=== PATIENT | female | born 2000 | race Caucasian/White ===

== ENCOUNTER 2021-11-14 12:32 | Outpatient (REF) | payer OTHER, SELFPAY ==
[2021-11-14 16:19] LABS: COVID-19 Test Negative (Negative)
== END 2021-11-14 12:33 | disposition home or self-care (01) ==
LOC: HO.LAB 12:32
PROVIDERS: Visit Provider Internal Medicine
DX: Z20.822 Contact with and (suspected) exposure to COVID-19 (principal)
CPT/HCPCS: 36415; 87635; C9803

== ENCOUNTER 2022-02-20 08:00 | Outpatient (RCR) | payer OTHER, SELFPAY ==
--- NOTE | 2022-01-13 12:50 | MHC.PT.EP ---
[facility] [place] Office [place] Office [place] Office [address] Ibis Harris [address] [phone] F: [phone] F: [phone] F: [phone] F: [phone] Physical Therapy Plan of Care Date of Evaluation: Date of Surgery: Diagnosis: SCOLIOSIS Assessment: QUANG IS A PLEASANT 21 YO FEMALE WHO PRESENTS WITH INCREASING PAIN OVER THE LAST FEW MONTHS. UPON EXAM SHE PRESENTS WITH MUSCULAR LENGTH AND STRENGTH IMBALANCES LEADING TO INCREASED SOFT TISSUE TENSION AND PAIN. UPON EXAM SHE DEMONSTRATES DECREASED LUMBAR ROM, DECREASED HIP ROM, DECREASED LE STRENGTH. FUNCTIONAL LIMITATIONS INCLUDE DECREASED ABILITY TO PERFORM HOMEMAKING TASKS, DECREASED ABILITY TO PUSH, PULL, LIFT AND SQUAT. SHE REPORTS DECREASED PARTICIPATION IN RECREATION AND FITNESS TASKS. A PT IS A GOOD CANDIDATE FOR SKILLED PT DUE TO AGE, POTENTIAL REMEDIATION OF IMPAIRMENTS, TYPICAL DISEASE/CONDITION PROGRESSION AND PROGNOSIS, COMORBIDITIES, AND MOTIVATION. PT WOULD BENEFIT FROM TAILORED PROGRAM OF THERAPEUTIC ACTIVITIES, FUNCTIONAL TRAINING, GAIT TRAINING, POSTURAL EDUCATION, NEUROMUSCULAR RE-EDUCATION, AND MODALITIES NEEDED. Frequency and Duration: The patient will be seen 2 X WEEK FOR 4 WEEKS Short Term Goals: INITIATE HEP AND PROMOTE SELF MANAGEMENT OF SYMPTOMS IN 3 VISITS Industrial Education Instructor Goals: To ambulate ad swathi without pain greater than 2/10 in 4 weeks To demonstrate 5/5 LE strength equal Nadeem IN 4 weeks To demonstrate full lumbar ROM without pain greater than 2/10 in 4 weeks Independent HEP in 4 weeks Treatment Plan: Modalities to reduce pain, spasms and effusion. Manual therapy to restore motion and function. Therapeutic exercise to improve strength and flexibility. Neuromuscular re-education for posture and balance. Therapeutic activities to return to functional activities of daily living. Electronically signed by: REMI CORREA PT, DPT Please sign and return to therapist. Thank you for your referral.
--- NOTE | 2022-04-03 09:13 | MHC.PT.DC ---
[facility] [place] Office [place] Office [place] Office [address] Ibis Harris [address] [phone] F: [phone] F: [phone] F: [phone] F: [phone] Physical Therapy Discharge Report Diagnosis: SCOLIOSIS Date of Surgery: Date of Evaluation: 01/06/22 Date of Discharge: 03/22/22 Treatments to Date: 5 Cancellations to Date: 3 No Shows to Date: 0 Discharge Status: Patient Elected to Stop Discharge Summary: QUANG WAS PROGRESSING WELL IN PT AT LAST ATTENDED VISIT, SHE PHONED OFFICE CANCELLING VISITS SHE WAS LEAVING FOR VACATION. SHE HAS RETURNED FOR FURTHER THERAPY AND IS DCed AT THIS TIME. Electronically signed by: REMI CORREA PT, DPT Please sign and return to therapist. Thank you for your referral.
== END 2022-04-03 09:14 | disposition home or self-care (01) ==
LOC: HO.PT 08:00
PROVIDERS: PCP Internal Medicine; Visit Provider Nurse Practitioner Family
DX: M54.9 Dorsalgia, unspecified (principal); M41.9 Scoliosis, unspecified
CPT/HCPCS: 97110; 97140; 97162

== ENCOUNTER 2022-03-27 08:27 | Outpatient (REF) | payer OTHER, SELFPAY ==
--- NOTE | ~2022-03-27 | US_ITS ---
EXAMINATION: US ABDOMEN COMPLETE CLINICAL INFORMATION: Right upper quadrant abdominal tenderness. COMPARISON: None TECHNIQUE: Real-time imaging of the abdominal viscera. FINDINGS: PANCREAS: Normal. ABDOMINAL AORTA: The proximal, mid, and distal segments are normal in caliber. INFERIOR VENA CAVA: Visualized portions are normal. LIVER: Normal. The liver is normal in size. The liver contour is normal. Parenchymal echogenicity is normal. No focal hepatic lesion. There is no intrahepatic biliary duct dilatation seen. GALLBLADDER: Normal. The gallbladder is physiologically distended without evidence of stones, sludge, polyps, wall thickening or pericholecystic fluid. COMMON BILE DUCT: Normal in caliber measuring 0.1 cm in diameter. RIGHT KIDNEY: Right renal pelviectasis. No niya hydronephrosis. No renal calculi or focal parenchymal lesions. The kidney measures 10.1 cm in maximum dimension. LEFT KIDNEY: Normal. No hydronephrosis. No renal calculi or focal parenchymal lesions. The kidney measures 10.7 cm in maximum dimension. SPLEEN: Normal. The spleen measures 10.5 cm in maximum dimension. FREE FLUID: None. US/US abdomen complete IMPRESSION: Right renal pelviectasis without niya hydronephrosis.
== END 2022-03-27 08:28 | disposition home or self-care (01) ==
LOC: HO.US 08:27
PROVIDERS: Visit Provider Nurse Practitioner Family
DX: R10.811 Right upper quadrant abdominal tenderness (principal)
CPT/HCPCS: 76700

== ENCOUNTER 2022-04-22 14:39 | Outpatient (REF) | payer OTHER, SELFPAY ==
[2022-04-22 17:23] LABS: MANUAL DIFF FLAG NO
[2022-04-22 17:47] LABS: Basophils Percent Auto 0.5 % (0-2); Eosinophils Absolute Auto 0.2 X10*3/uL (0.0-0.4); Hematocrit 41.1 % (37.0-47.0); Hemoglobin 13.9 g/dl (12.0-16.0); Imm Gran Abs Auto 0.01 X10*3/uL (0.00-0.03); Imm Gran Pct Auto 0.1 % (0.0-0.4); Lymphocytes Absolute Auto 3.9 X10*3/uL (1.2-4.9); Lymphocytes Percent Auto 49.8 % (20-40); Mean Corpuscular HGB Conc 33.8 g/dl (31.0-35.0); Mean Corpuscular Hemoglobin 27.6 pg (27.0-33.0); Mean Corpuscular Volume 81.5 fL (80.0-98.0); Mean Platelet Volume 9.2 fL (9.4-12.3); Monocytes Absolute Auto 0.4 X10*3/uL (0.1-1.2); Monocytes Percent Auto 5.2 % (2-11); Neutrophils Absolute Auto 3.3 x10*3/uL (2.0-8.3); Neutrophils Percent Auto 42.4 % (45-73); Platelet Count 216 X10*3/uL (160-400); Red Blood Count 5.04 X10*6/uL (4.20-5.50); Red Cell Distribution Width 12.8 % (11.0-16.0); White Blood Count 7.8 X10*3/uL (4.8-10.8)
[2022-04-22 18:03] LABS: Alanine Aminotransferase 13 U/L (0-31); Albumin Level 4.7 g/dL (3.5-5.0); Alkaline Phosphatase 47 U/L (39-117); Anion Gap 13 (12-20); Aspartate Amino Transferase 16 U/L (5-31); Bilirubin Total 0.2 mg/dL (0.0-1.0); Blood Urea Nitrogen 12 mg/dL (9-16); Calcium 9.1 mg/dL (8.4-10.2); Carbon Dioxide 25 mmol/L (22-29); Chloride 105 mmol/L (96-108); Estimated Glomerular Filt Rate > 60; Glucose Random 86 mg/dL (60-115); Potassium 3.6 mmol/L (3.3-5.1); Sodium 139 mmol/L (135-145); Total Protein 7.4 g/dL (6.5-8.0)
[2022-04-22 18:23] LABS: TSH reflex Free T4 1.54 uIU/mL (0.32-4.0); Vitamin D 25-OH Total 44.3 ng/mL (>30)
== END 2022-04-22 14:40 | disposition home or self-care (01) ==
LOC: HO.LAB 14:39
PROVIDERS: PCP Internal Medicine; Visit Provider Nurse Practitioner Family
DX: Z13.29 Encounter for screening for other suspected endocrine disorder (principal); R10.9 Unspecified abdominal pain
CPT/HCPCS: 36415; 80053; 82306; 84443; 85025

== ENCOUNTER 2023-12-11 07:53 | Outpatient (AMB) | payer OTHER, SELFPAY ==
[2023-12-11 07:56] VITALS: BP 108/70; BMI 21.6
--- NOTE | 2023-12-11 07:56 | A.OFFPC_ITS ---
Vital Signs 12/11/23 07:56 Height 5 ft 3 in Weight 122 lb BMI 21.6 BP 108/70 Blood Pressure Location Lt brachial Position Sitting Intake Visit Reasons: PE Intake Note: Patient here for a physical exam Direct Mail Coordinator Required: No Accompanied by: Self / Same As Patient Allergies Seasonal Allergies Allergy (Mild, Verified 12/11/23 08:08) itchy eyes, runny nose Medication List - Last Reconciled 12/11/23 by Sofie Braxton MD levonorgestrel-ethinyl estrad 0.1-20 mg-mcg (Sronyx) 1 tab PO DAILY sertraline 100 mg PO DAILY 90 days sertraline (Zoloft) 25 mg PO DAILY 90 days Tobacco use date assessed: 12/11/23 Dental Screening Dental Screen Date: 12/11/23 Did you have a dental visit in the last 12 months?: Yes Did you have a dental problem in the last 6 months where you did not have access to dental care?: No Was dental information given to patient?: Patient has dentist HPI HPI Comments History of Present Illness Details This is a 23-year-old female that comes for her physical exam. Last Pap smear as per patient was a year ago and was normal. No chest pain or shortness of breath. Complains of constipation with less than 3 bowel movements per week. Was advised to eat a high-fiber diet and try [id number] Metamucil tablets. [facility] Medical History Screening for hypothyroidism Urinary frequency Plantar warts Anxiety Surgical History History of removal of skin mole Family History Mother Thyroid cancer Father Diabetes Social History Housing: Apartment Alcohol intake: never Patient Tobacco Use Status: Never used Tobacco e-Cigarette/Vaping Use: Former Use Second Hand Smoke Exposure: No service: No Current occupational status: employed Current occupational exposures/hazards: No Cognitive needs: No Hearing needs: No Vision needs: Yes (glasses) Questionnaire PHQ-9 Over the last 2 weeks, how often have you been bothered by any of the following problems? 1. Little interest or pleasure in doing things: not at all 2. Feeling down, depressed, or hopeless: not at all 3. Trouble falling or staying asleep, or sleeping too much: not at all 4. Feeling tired or having little energy: not at all 5. Poor appetite or overeating: not at all 6. Feeling bad about yourself - or that you are a failure or have let yourself or your family down: not at all 7. Trouble concentrating on things, such as reading the newspaper or watching television: not at all 8. Moving or speaking so slowly that other people could have noticed. Or the opposite - being so fidgety or restless that you have been moving around a lot more than usual: not at all 9. Thoughts that you would be better off or of hurting yourself in some way: not at all Total score: 0 Depression Screening Interpretation: Negative Depression Screening Done: Yes 16788 - PHQ-9 Billing: Yes Source: Developed by Drs. Ivan Dutton, Jennifer Delvalle, Alexey Early and colleagues, with an educational mary from [employer]. Thrive Questionnaire Date Thrive assessed: 12/11/23 I am a: Patient What is your living situation today?: I have a steady place to live Within the past 12 months, did the food you bought not last and you didn't have the money to get more?: Never true Within the past 12 months, did you worry whether your food would run out before you got money to buy more?: Never true Do you have trouble paying for medicines?: No Do you have trouble getting transportation to medical appointments?: No Do you have trouble paying your heating and electricity bill?: No Do you have trouble taking care of your child, family member or friend?: No Do you have trouble with day-to-day activities such as bathing, preparing meals, shopping, managing finances, etc.?: No Are you currently unemployed and looking for a job?: No Are you interested in more education?: No Please select the resources that you would like help with: None Currently or been in a relationship where the following occur: no concerns reported THRIVE Score: 0 AUDIT C Alcohol Use Questionnaire (AUDIT-C) 1. How often do you have a drink containing alcohol?: Never 3. How often do you have six or more drinks on one occasion?: Never Total Score: 0 Score Reviewed/Action Taken: No MEG-7 AMB Questionnaire MEG-7 Date MEG - 7 assessed: 12/11/23 Feeling nervous, anxious, or on edge: 1 = Several days Not being able to stop or control worryin = Not at all Worrying too much about different things: 1 = Several days Trouble relaxin = Not at all Being so restless that it is hard to sit still: 0 = Not at all Becoming easily annoyed or irritable: 1 = Several days Feeling afraid as if something awful might happen: 1 = Several days Total MEG-7 score (0-4 normal; 5-9 mild; 10-14 moderate; 15-21 severe): 4 Source: Developed by Drs. Ivan Dutton, Jennifer Delvalle, Alexey Early and colleagues, with an educational mary from [employer]. MEG-7 Assessment Billing MEG-7 Assessment Tool: MEG-7 Assessment 04752 Review of Systems Const All systems reviewed & are unremarkable except as noted in HPI and below Eyes Reports no additional complaints, Denies change in vision and Denies other visual disturbances Card Denies chest pain at rest, Denies chest pain with activity, Denies edema, Denies irregular heart rhythm, Denies claudication, Denies dyspnea, Denies dyspnea on exertion, Denies orthopnea, Denies paroxysmal nocturnal dyspnea and Denies slow heart rate Resp Denies cough, Denies dyspnea and Denies dyspnea on exertion GI Denies abdominal pain, Denies change in bowel habits, Reports constipation, Denies excessive flatus, Denies nausea and Denies vomiting Denies urinary incontinence, Denies urinary hesitancy and Denies urinary urgency Musc Denies abnormal gait, Denies atrophy, Denies deformity and Denies limited range of motion Skin/Breast Denies bleeding lesions, Denies changing lesions and Denies rash Neuro Denies abnormal gait, Denies behavioral changes, Denies confusion and Denies lack of coordination Psych Denies behavioral changes and Denies confusion Physical exam (Primary Care) Vital Signs: Last Vital Signs BP 108/70 12/11/23 07:56 BMI result Body Mass Index 21.6 Tobacco/Smoking Status: Tobacco use Status Tobacco use date assessed 12/11/23 12/11/23 08:04 Patient Tobacco Use Status Never used Tobacco 12/11/23 08:04 e-Cigarette/Vaping Use Former Use 12/11/23 08:04 PHQ-9: PHQ-9 Score PHQ-9: Total score 0 12/11/23 08:04 Depression Screening Interpretation: Negative Thrive Assessment: Date of Thrive Assessment Date Thrive assessed 12/11/23 12/11/23 08:04 Currently or been in a relationship where the following occur: no concerns reported Const General: No confusion Orientation/consciousness: patient oriented x3 and No confusion HENMT Head: Yes normal to inspection, Yes normocephalic and Yes atraumatic Ears: external ears normal Eyes General: appearance normal, both eyes and all related structures Eyelids: Yes eyelids normal Conjunctivae: conjunctivae normal Neck Neck: Yes normal visual inspection and Yes supple Resp Effort & Inspection: normal respiratory effort Auscultation: clear to auscultation bilaterally Cardio Jugular venous distension: no JVD Rate: regular rate Rhythm: regular rhythm Heart sounds: S1 normal heart sound present and S2 normal heart sound present GI Inspection: Yes normal to inspection Palpation (GI): Soft to palpation and nontender Auscultation: normal bowel sounds Skin General skin exam: no rashes or lesions noted Neuro General: patient oriented x3, no focal motor deficits and No confusion Extrem General: Yes full ROM Psych Appearance: grossly normal Office Procedures Flu Questionnaire Does the patient have a severe egg allergy?: No Immunizations flu vacc [id number] 6mos up(PF) 60 mcg(15 mcgx4)/0.5 mL IM syringe Performing Provider: Sofie Braxton MD [facility] Documented (not given) by: LEDY Ervin on 12/11/23 08:04 Reason Not Given: Patient Refused Assessment and Plan Assessment & Plan (1) Adult general medical exam: Code(s): Z00.00 - Encounter for general adult medical examination without abnormal findings Plan: Repeat in a year. Orders: Orders Influenza [id number] Immunization Today Z23 - Encounter for immunization Coding Level of Care Code Est Pt Prev Care 18-39y(76123) Diagnoses Adult general medical exam Z00.00 Additional Codes MEG-7 Assessment Billing - MEG-7 Assessment Tool: MEG-7 Assessment 09565 ([id number]) Time Spent (min) 31
== END 2023-12-11 08:20 | disposition home or self-care (01) ==
PROVIDERS: PCP Internal Medicine; Visit Provider Internal Medicine
DX: Z00.00 Encounter for general adult medical examination without abnormal findings (principal)
CPT/HCPCS: 99395

== ENCOUNTER 2024-02-26 07:36 | Outpatient (AMB) | payer OTHER, SELFPAY ==
--- NOTE | 2024-02-26 07:51 | A.OFFVIS_ITS ---
Intake Vital Signs 02/26/24 07:54 Height 5 ft 2 in Weight 117 lb BMI 21.4 BP 94/63 Blood Pressure Location Lt brachial Position Sitting Pulse 86 Intake Visit Reasons: Abdominal pain/Nausea Intake Note: Patient follow up for Abdominal pain and nauseas. Patient cc: nauseas, abdominal pain with bloating, constipation, fatigue, and dizziness. Control Technician Required: No Accompanied by: Self / Same As Patient Allergies Seasonal Allergies Allergy (Mild, Verified 02/26/24 07:51) itchy eyes, runny nose Medication List - Last Reconciled 02/26/24 by Dasia Asher PA-C levonorgestrel-ethinyl estrad 0.1-20 mg-mcg (Sronyx) 1 tab PO DAILY sertraline 100 mg PO DAILY 90 days sertraline (Zoloft) 25 mg PO DAILY 90 days HPI HPI Comments History of Present Illness Details Last seen in 2021 A 23 y/o female with flu like sx= prior to BM-she has constipation- for many years--she has a BM Q couple days- Cleanse more has been some helping ( mag oxide 230)-she has had symptoms of constipation ongoing for years She has general anxiety- about health Appetite good- She has no nausea, vomiting, hematemesis, hematochezia fever chills PFSH Medical History Screening for hypothyroidism Urinary frequency Plantar warts Anxiety Surgical History History of removal of skin mole Family History Mother Thyroid cancer Father Diabetes Social History Housing: Apartment Alcohol intake: never Patient Tobacco Use Status: Never used Tobacco e-Cigarette/Vaping Use: Former Use Second Hand Smoke Exposure: No service: No Current occupational status: employed Current occupational exposures/hazards: No Cognitive needs: No Hearing needs: No Vision needs: Yes (glasses) Review of Systems Const All systems reviewed & are unremarkable except as noted in HPI and below Card Denies chest pain and Denies dyspnea Resp Denies dyspnea GI Denies abdominal pain and Reports bloating Physical Exam Vital Signs: Last Vital Signs Pulse 86 02/26/24 07:54 BP 94/63 02/26/24 07:54 BMI result Body Mass Index 21.4 Const General: cooperative, healthy appearing, comfortable and no acute distress Nutritional Appearance: thin Orientation/consciousness: patient oriented x3 Limitations: no limitations Resp Effort & Inspection: normal respiratory effort and able to speak in complete sentences Cardio Rate: regular rate Rhythm: regular rhythm Heart sounds: S1 normal heart sound present and S2 normal heart sound present GI Palpation (GI): Soft to palpation and nontender Auscultation: normal bowel sounds Skin General skin exam: no rashes or lesions noted Neuro General: patient oriented x3 Extrem General: Yes full ROM Psych Appearance: grossly normal and well kempt Mental Status: mental status grossly normal Speech and movement: Normal speech and movement present and Clear speech present Affect: normal affect Thought process: Normal thought process present Thought content: Normal thought content present Insight: Good insight present (Psych) Judgement: Good judgement present (Psych) Results Reviewed Results Reviewed: Reviewed note back from 2021 Assessment & Plan Assessment & Plan (1) Chronic constipation: Comment: Chronic constipation since she can remember Will give trial of Linzess Code(s): K59.09 - Other constipation Plan: Colonoscopy-with biopsy (2) Bloating: Comment: Colonoscopy Code(s): R14.0 - Abdominal distension (gaseous) Plan: Will fodmap Trial Linzess 145 mcg Plan Colonoscopy- SHANKAR MG prep F/U w/ me after Orders: Orders Colonoscopy - GI Use Only Today K59.09 - Other constipation, R14.0 - Abdominal distension (gaseous) Complete Blood Count Auto Diff Today K59.09 - Other constipation, R14.0 - Abdominal distension (gaseous) Comprehensive Met. Panel Today K58.9 - Irritable bowel syndrome without diarrhea Thyroid Stimulating Hormone Today K59.09 - Other constipation, R14.0 - Abdominal distension (gaseous) Medications: New bisacodyl (Dulcolax (bisacodyl)) Day before procedure @ 12 noon Take 4 tablets by mouth followed by large glass of water 20 mg (4 x 5 mg) PO ONCE PRN 4 tabs 0RF colonoscopy prep 1 day Z12.11 - Encounter for screening for malignant neoplasm of colon polyethylene glycol 3350 (Miralax) Take as directed by mouth the day before your procedure. 238 grams PO ONCE 238 grams 0RF laxative effect 1 day linaclotide (Linzess) 145 mcg PO DAILY 30 caps 3RF 30 days Patient Instructions: Low FODMAP reviewed and literature Colonoscopy discussed procedure, rare risks need for escort MiraLax Gatorade prep, reviewed literature Maintain high-fiber Trial of Linzess 145 mcg Keep well hydrated Encouraged to call with questions or concerns Coding Level of Care Code Est Pt Level 3 (18584) Diagnoses Chronic constipation K59.09 Bloating R14.0 Time Spent (min) 30
[2024-02-26 07:54] VITALS: BP 94/63; PULSE 86; BMI 21.4
== END 2024-02-26 09:11 | disposition home or self-care (01) ==
PROVIDERS: PCP Internal Medicine; Visit Provider Physician Assistant
DX: K59.09 Other constipation (principal); R14.0 Abdominal distension (gaseous)
CPT/HCPCS: 99213

== ENCOUNTER → 2024-02-26 07:36 | Outpatient (BNVA) | payer OTHER, SELFPAY | PROVIDERS: PCP Internal Medicine; Visit Provider Physician Assistant ==

== ENCOUNTER 2024-07-09 14:13 | Outpatient (AMB) | payer OTHER, SELFPAY ==
--- NOTE | 2024-07-09 14:17 | MHC.PC.OV ---
Vital Signs 07/09/24 14:19 Height 5 ft 2 in Weight 121 lb BMI 22.1 BP 108/76 Blood Pressure Location Lt brachial Position Sitting Intake Visit Reasons: BackPain Button Sewer Hand Required: No Accompanied by: Self / Same As Patient Allergies Seasonal Allergies Allergy (Mild, Verified 07/09/24 14:27) itchy eyes, runny nose Medication List - Last Reconciled 07/09/24 by Sofie Braxton MD levonorgestrel-ethinyl estrad 0.1-20 mg-mcg (Sronyx) 1 tab PO DAILY sertraline (Zoloft) 25 mg PO DAILY 90 days sertraline 100 mg PO DAILY 90 days Tobacco use date assessed: 12/11/23 Dental Screening Dental Screen Date: 12/11/23 HPI HPI Comments History of Present Illness Details This is a 23-year-old female that has been experience heartburn symptoms for the past 2 months and has been relieved by omeprazole [id number]. I advised to not take it every day. Also she should change her diet. She has history of scoliosis and is experiencing neck pain, thoracic spine pain and back pain. She will have x-rays and will be referred to pain management. [facility] Medical History (Updated 07/09/24 @ 14:39 by Sofie Braxton MD) Screening for hypothyroidism Urinary frequency Plantar warts Anxiety Surgical History History of removal of skin mole Family History Mother Thyroid cancer Father Diabetes Social History Housing: Apartment Alcohol intake: never Patient Tobacco Use Status: Never used Tobacco e-Cigarette/Vaping Use: Former Use Second Hand Smoke Exposure: No service: No Current occupational status: employed Current occupational exposures/hazards: No Cognitive needs: No Hearing needs: No Vision needs: Yes (glasses) Questionnaire Thrive Questionnaire Date Thrive assessed: 12/11/23 MEG-7 AMB Questionnaire MEG-7 Date MEG - 7 assessed: 12/11/23 Source: Developed by Drs. Ivan Dutton, Jennifer Delvalle, Alexey Early and colleagues, with an educational mary from [employer]. Review of Systems Const All systems reviewed & are unremarkable except as noted in HPI and below ENT Reports neck pain Card Denies chest pain at rest, Denies chest pain with activity, Denies edema, Denies irregular heart rhythm, Denies claudication, Denies dyspnea, Denies dyspnea on exertion, Denies orthopnea, Denies paroxysmal nocturnal dyspnea and Denies slow heart rate Resp Denies cough, Denies dyspnea and Denies dyspnea on exertion GI Denies abdominal pain, Denies change in bowel habits, Denies excessive flatus, Reports heartburn, Denies nausea and Denies vomiting Denies urinary incontinence, Denies urinary hesitancy and Denies urinary urgency Musc Denies abnormal gait, Reports back pain, Denies atrophy, Denies deformity, Denies limited range of motion and Reports neck pain Skin/Breast Denies bleeding lesions, Denies changing lesions and Denies rash Neuro Denies abnormal gait and Denies lack of coordination Physical exam (Primary Care) Vital Signs: Last Vital Signs BP 108/76 07/09/24 14:19 BMI result Body Mass Index 22.1 Tobacco/Smoking Status: Tobacco use Status Tobacco use date assessed 12/11/23 07/09/24 14:19 Patient Tobacco Use Status Never used Tobacco 07/09/24 14:19 e-Cigarette/Vaping Use Former Use 07/09/24 14:19 Thrive Assessment: Date of Thrive Assessment Date Thrive assessed 12/11/23 07/09/24 14:19 Resp Effort & Inspection: normal respiratory effort Auscultation: clear to auscultation bilaterally Cardio Jugular venous distension: no JVD Rate: regular rate Rhythm: regular rhythm Heart sounds: S1 normal heart sound present and S2 normal heart sound present Extrem General: Yes full ROM Assessment and Plan Assessment & Plan (1) Chronic GERD: Code(s): K21.9 - Gastro-esophageal reflux disease without esophagitis Plan: Continue omeprazole as needed. (2) Neck pain: Code(s): M54.2 - Cervicalgia Plan: X-ray ordered. (3) Thoracic spine pain: Code(s): M54.6 - Pain in thoracic spine Plan: X-ray ordered. (4) Lumbar pain: Code(s): M54.50 - Low back pain, unspecified Plan: X-ray ordered. Orders: Orders Comprehensive [place]. Panel Fast Today R42 - Dizziness and giddiness XR cervical spine 2V Today M54.2 - Cervicalgia XR lumbar spine 2-3V Today M54.50 - Low back pain, unspecified XR thoracic spine 2V Today M54.6 - Pain in thoracic spine Referrals CLINICAL SUPERVISOR Referral Z30.9 - Encounter for contraceptive management, unspecified Pain Management Referral M54.2 - Cervicalgia, M54.50 - Low back pain, unspecified, M54.6 - Pain in thoracic spine Medications: New omeprazole 20 mg PO DAILY 90 caps 1RF 90 days K21.9 - Gastro-esophageal reflux disease without esophagitis Changed From levonorgestrel-ethinyl estrad 0.1-20 mg-mcg (Sronyx) 1 tab PO DAILY To levonorgestrel-ethinyl estrad 0.1-20 mg-mcg (Sronyx) 1 tab PO DAILY 84 tabs 1RF 84 days Coding Level of Care Code Est Pt Level 4 (00126) Complex EM visit Add On G2211 Diagnoses Chronic GERD K21.9 Neck pain M54.2 Thoracic spine pain M54.6 Lumbar pain M54.50 Time Spent (min) 20
[2024-07-09 14:19] VITALS: BP 108/76; BMI 22.1
== END 2024-07-09 14:41 | disposition home or self-care (01) ==
PROVIDERS: PCP Internal Medicine; Visit Provider Internal Medicine
DX: K21.9 Gastro-esophageal reflux disease without esophagitis (principal); M54.2 Cervicalgia; M54.6 Pain in thoracic spine; M54.50 Low back pain, unspecified
CPT/HCPCS: 99214

== ENCOUNTER 2024-08-04 13:43 | Outpatient (AMB) | payer OTHER, SELFPAY ==
--- NOTE | 2024-08-04 13:45 | A.OFFVIS_ITS ---
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 Patient reports her scoliosis was at 49 degree angle at age 11 and she was in back brace till age 13. She was followed at [facility] during her school years. Patient denies any recent trauma, injury, or falls. 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 She completed partial physical therapy 2 years ago with [facility] which worsened her symptoms. She denies previous spine surgery or injections. Patient has pending spine x-ray results which she plans to complete today. She has been managing her symptoms with Tylenol and heat therapy including hot showers with minimal and temporary relief. She denies previous chiropractic manipulation, acupuncture, massage therapy, or TENS unit. Denies any fever or chills, dizziness, shortness of breath, chest pain, weakness, bladder or bowel dysfunction or saddle anesthesia. Location: Neck, middle to lower back due scoliosis Duration: Chronic pain for 2 years, worsening for past 6 months Characteristics of symptom or complaint: Spasming, stiffness, tightness, aching, shooting, stabbing, tiring Aggravating or associated factors: Movement, looking down, prolonged standing or sitting Relieving factors: Ibuprofen, heat, hot shower, OTC topicals Treatment: PT at [facility] 2021-no improvement, increased pain after PT [facility] Medical History Screening for hypothyroidism Urinary frequency Plantar warts Anxiety Surgical History History of removal of skin mole Family History Mother Thyroid cancer Father Diabetes Social History Housing: Apartment Alcohol intake: never Patient Tobacco Use Status: Never used Tobacco e-Cigarette/Vaping Use: Former Use Second Hand Smoke Exposure: No service: No Current occupational status: employed Current occupational exposures/hazards: No Cognitive needs: No Hearing needs: No Vision needs: Yes (glasses) Review of Systems Const All systems reviewed & are unremarkable except as noted in HPI and below Physical Exam Vital Signs: Last Vital Signs Pulse 92 08/04/24 13:49 BP 139/83 08/04/24 13:49 Pulse Ox 100 08/04/24 13:49 Oxygen Delivery Method Room Air 08/04/24 13:49 BMI result Body Mass Index 22.6 General: Appears afebrile. Alert and oriented. Mood and affect appropriate. Follows and participates in conversation appropriately. Respiratory effort is unlabored. No cough. Able to transition from sit to stand unassisted. Ambulates with bilaterally normal heel strike and toe off. Neck Neck: Yes normal visual inspection, Yes full ROM, Yes no lymphadenopathy, Yes supple, No anterior neck swelling, No torticollis, Yes no JVD, No prominent supraclavicular fat pad and No prominent dorsocervical fat pad General: Yes no CVA tenderness Back/Spine/Pelvis Back: no CVA tenderness Cervical Spine: cervical ROM normal, cervical muscular tenderness, pain with cervical ROM, No Cervical spine tenderness and No step off deformity Thoracic/Lumbar Spine: thoracic and lumbar spine normal to inspection, Lasegue's sign negative, straight leg raise negative bilaterally, pain with thoraco-lumbar ROM, paraspinal muscle tenderness on the left greater than right, Thoracic/lumbar scoliosis, No thoracic spinal tenderness and No lumbar spinal tenderness Assessment & Plan Assessment & Plan (1) Scoliosis: Code(s): M41.9 - Scoliosis, unspecified Category: Medical (2) Thoracic spine pain: Code(s): M54.6 - Pain in thoracic spine Category: Medical (3) Lumbar pain: Code(s): M54.50 - Low back pain, unspecified Category: Medical (4) Muscle spasm of back: Code(s): M62.830 - Muscle spasm of back Category: Medical (5) Neck pain: Code(s): M54.2 - Cervicalgia Category: Medical Plan Patient encouraged to complete cervical, thoracic and lumbar spine x-rays to assess degree of arthritis and scoliosis. Script provided for Zynex TENS unit. Informational pamphlet provided to patient today. Patient understands that TENS unit device will be shipped to her home once it is approved by her insurance. Scripts provided for lidocaine patches and Salonpas patches. Continue heat therapy, gentle stretching exercises, adequate hydration, good posture and activity modifications. Patient will trial magnesium glycinate prior we consider prescribing muscle relaxant. All questions and concerns have been answered and patient agreed with the treatment plan. Follow-up for x-ray results and sooner as needed. Medications: New camphor-methyl salicyl-menthol 3.1-15-10 % (Salonpas Deep Relieving) 1 ea topical DAILY 30 days 78 grams 3RF pain M41.9 - Scoliosis, unspecified, M54.50 - Low back pain, unspecified, M54.6 - Pain in thoracic spine lidocaine 5% leave on most painful area for up to 12 hrs topically daily; 30 ea 3RF pain M41.9 - Scoliosis, unspecified, M54.50 - Low back pain, u nspecified, M54.6 - Pain in thoracic spine Coding Level of Care Code New Pt Level 4 (08210) Complex EM visit Add On G2211 Diagnoses Scoliosis M41.9 Thoracic spine pain M54.6 Lumbar pain M54.50 Muscle spasm of back M62.830 Neck pain M54.2
[2024-08-04 13:49] VITALS: BP 139/83; PULSE 92; O2SAT 100; BMI 22.6
== END 2024-08-04 14:26 | disposition home or self-care (01) ==
PROVIDERS: PCP Internal Medicine; Referring Provider Internal Medicine; Visit Provider Nurse Practitioner Family
DX: M41.9 Scoliosis, unspecified (principal); M54.6 Pain in thoracic spine; M54.50 Low back pain, unspecified; M62.830 Muscle spasm of back; M54.2 Cervicalgia
CPT/HCPCS: 99204

== ENCOUNTER 2024-08-04 13:43 | Outpatient (REF) | payer OTHER, SELFPAY ==
--- NOTE | ~2024-08-04 | XR_ITS ---
EXAMINATION: XR THORACIC SPINE CLINICAL INFORMATION: M54.6 - Pain in thoracic spine COMPARISON: None available. Lumbar and cervical spine radiographs performed same day. TECHNIQUE: 3 views of the thoracic spine were obtained. FINDINGS: No fracture, dislocation, or suspicious bone lesion. No compression deformity. There is an associated thoracolumbar scoliosis, with the superior component convex to the right, apex at T5, with maximum Millan angle estimated at 29 degrees. The inferior component is convex to the left, apex at T12, with a significant leftward rotatory component extending into the lumbar spine. Estimated Millan angle is 45 degrees. There is mild straightening of the normal kyphosis as a result of the scoliosis. Disc spaces appear preserved. Facets appear normally aligned. No significant degenerative change. Imaged soft tissues appear normal. Imaged lungs appear clear. XR/XR thoracic spine 2V IMPRESSION: 1. S-shaped thoracolumbar scoliosis with rotatory component. 2. Otherwise, normal thoracic spine. Electronically signed by: Anders Jerez MD 10/14/2024 09:29 AM OSBALDO MCKINNEY
--- NOTE | ~2024-08-04 | XR_ITS ---
EXAMINATION: XR CERVICAL SPINE CLINICAL INFORMATION: M54.2 - Cervicalgia COMPARISON: None available. TECHNIQUE: 3 views of the cervical spine were obtained. FINDINGS: No fracture, dislocation, or focal bony abnormality. No compression deformities. Normal mineralization. Straightening/mild reversal of the normal lordosis centered at C4, nonspecific. Alignment is otherwise normal without subluxation. Disc spaces are preserved. Facets are normally aligned. Mild left uncinate spurring noted C3-4. No prevertebral soft tissue abnormality. Lung apices clear. XR/XR cervical spine 2V IMPRESSION: 1. No acute findings of the cervical spine. 2. Mild reversal normal lordosis centered at C4, nonspecific. 3. Mild left uncinate spurring C3-4. Electronically signed by: Anders Jerez MD 10/14/2024 09:41 AM OSBAL[facility] MCKINNEY
--- NOTE | ~2024-08-04 | XR_ITS ---
EXAMINATION: XR LUMBOSACRAL SPINE CLINICAL INFORMATION: M54.50 - Low back pain, unspecified COMPARISON: None available. TECHNIQUE: Three views of the lumbosacral spine. FINDINGS: No fracture, or suspicious bone lesion. Normal bone mineralization. S-shaped thoracolumbar scoliosis as discussed on the thoracic spine radiographs of same day. There is a rotatory component in the lumbar spine. Straightening of the normal lordosis. Normal alignment without subluxation. Disc spaces preserved. Facets are normally aligned. No significant degenerative change. Normal-appearing SI joints and imaged hip joints. There is no soft tissue abnormality. XR/XR lumbar spine 2-3V IMPRESSION: 1. No acute findings lumbar spine. 2. S-shaped thoracolumbar scoliosis with associated rotatory lumbar component. Refer to the dedicated thoracic x-ray report from same day. 3. Otherwise normal exam. Electronically signed by: Anders Jerez MD 10/14/2024 09:22 AM OSBAL[facility] MCKINNEY
[2024-08-04 15:34] LABS: MANUAL DIFF FLAG NO
[2024-08-04 16:12] LABS: Basophils Percent Auto 0.4 % (0-2); Eosinophils Absolute Auto 0.1 X10*3/uL (0.0-0.4); Eosinophils Percent Auto 1.3 % (0-4); Hematocrit 41.2 % (37.0-47.0); Hemoglobin 13.6 g/dl (12.0-16.0); Imm Gran Abs Auto 0.02 X10*3/uL (0.00-0.03); Imm Gran Pct Auto 0.3 % (0.0-0.4); Lymphocytes Absolute Auto 2.5 X10*3/uL (1.2-4.9); Lymphocytes Percent Auto 37.7 % (20-40); Mean Corpuscular Hemoglobin 27.6 pg (27.0-33.0); Mean Corpuscular Volume 83.7 fL (80.0-98.0); Mean Platelet Volume 9.8 fL (9.4-12.3); Monocytes Absolute Auto 0.3 X10*3/uL (0.1-1.2); Monocytes Percent Auto 5.1 % (2-11); Neutrophils Absolute Auto 3.7 x10*3/uL (2.0-8.3); Neutrophils Percent Auto 55.2 % (45-73); Platelet Count 195 X10*3/uL (160-400); Red Blood Count 4.92 X10*6/uL (4.20-5.50); Red Cell Distribution Width 12.4 % (11.0-16.0); White Blood Count 6.7 X10*3/uL (4.8-10.8)
[2024-08-04 16:45] LABS: Alanine Aminotransferase 11 U/L (0-31); Albumin Level 4.2 g/dL (3.5-5.0); Alkaline Phosphatase 42 U/L (39-117); Anion Gap 11 (12-20); Aspartate Amino Transferase 16 U/L (5-31); Bilirubin Total 0.4 mg/dL (0.0-1.0); Blood Urea Nitrogen 13 mg/dL (9-16); Calcium 9.3 mg/dL (8.4-10.2); Carbon Dioxide 26 mmol/L (22-29); Chloride 106 mmol/L (96-108); Estimated Glomerular Filt Rate > 60; Glucose Fasting 83 mg/dL (60-99); Glucose Random 82 mg/dL (60-115); Potassium 3.7 mmol/L (3.3-5.1); Sodium 139 mmol/L (135-145); Total Protein 6.8 g/dL (6.5-8.0)
[2024-08-04 17:08] LABS: Thyroid Stimulating Hormone 1.05 uIU/mL (0.32-4.0)
== END 2024-08-04 13:44 | disposition home or self-care (01) ==
LOC: HO.XRAY 13:43
PROVIDERS: Physician Assistant; PCP Internal Medicine; Referring Provider Internal Medicine; Visit Provider Nurse Practitioner Family
DX: M41.9 Scoliosis, unspecified (principal); M54.6 Pain in thoracic spine; M54.50 Low back pain, unspecified; M62.830 Muscle spasm of back; M54.2 Cervicalgia; K59.09 Other constipation; R14.0 Abdominal distension (gaseous); K58.9 Irritable bowel syndrome, unspecified; R42 Dizziness and giddiness
CPT/HCPCS: 36415; 72040; 72070; 72100; 80053; 84443; 85025

== ENCOUNTER → 2024-08-04 14:28 | Outpatient (BNV) | payer OTHER, SELFPAY | PROVIDERS: PCP Internal Medicine; Referring Provider Internal Medicine; Visit Provider Radiology Diagnostic Radiology | DX: M41.85 Other forms of scoliosis, thoracolumbar region (principal); M47.812 Spondylosis without myelopathy or radiculopathy, cervical region | CPT/HCPCS: 72040; 72070; 72100 ==

== ENCOUNTER 2024-08-25 11:12 | Outpatient (AMB) | payer OTHER, SELFPAY ==
[2024-08-25 11:27] VITALS: BP 100/60; BMI 22.9
--- NOTE | 2024-08-25 11:27 | A.OFFVIS_ITS ---
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: Software Qa Manager Present Allergies Seasonal Allergies Allergy (Mild, Verified 08/25/24 11:27) itchy eyes, runny nose Medication List - Last Reconciled 08/25/24 by Marcela Fernandez CNM camphor-methyl salicyl-menthol 3.1-15-10 % (Salonpas Deep Relieving) 1 ea topical DAILY 30 days levonorgestrel-ethinyl estrad 0.1-20 mg-mcg (Vienva) 1 tab PO DAILY lidocaine 5% leave on most painful area for up to 12 hrs topically daily; omeprazole 20 mg PO DAILY 90 days sertraline (Zoloft) 25 mg PO DAILY 90 days sertraline 100 mg PO DAILY 90 days Is last menstrual period known: Yes Last menstrual period: 08/24/24 Do you need a note to return to daycare/school/sports/work: No HPI HPI BC Consult/Referral/DO NOT RS: Details: Patient is here because she has moving all of her care from a previous providers in [place] [facility] [place] [facility] to us and wants not to run out of control pills she has been on them for very long time and she has no problems taking them and takes them every single day at the same time every day in the evening with her Zoloft. She has no other health concerns other than the anxiety which she feels is well managed with the 125 mg Zoloft. She used to have therapy but does not feel she needs it currently and does not have 1 right now her primary care provider managing that for her she does not smoke she does not have any cancers she does not have any other medical contraindications to OCPs she does believe she had some sort of abnormal cells on her Pap smear because she thinks she has had about 4- 5 Pap smears in her young life you will have her sign for records periods I will refill her prescriptions and I reviewing how to take them and she is describing herself as a very diligent pill taker and we will see her for her annual exam whenever it is due. [facility] Medical History Screening for hypothyroidism Urinary frequency Plantar warts Anxiety Surgical History History of removal of skin mole Family History Mother Thyroid cancer Father Diabetes Social History Housing: Apartment Alcohol intake: never Patient Tobacco Use Status: Never used Tobacco e-Cigarette/Vaping Use: Former Use Second Hand Smoke Exposure: No service: No Current occupational status: employed Current occupational exposures/hazards: No Cognitive needs: No Hearing needs: No Vision needs: Yes (glasses) Female Reproductive History Menstrual Age of Menarche: 13 Duration of menses: 3-5 days Date of last menstrual period: 08/24/24 control method: pills Total pregnancies: 0 Date of last pap smear: 12/18/21 (negative,per patient) History of abnormal pap smear: No Physical Exam Vital Signs: Last Vital Signs BP 100/60 08/25/24 11:27 BMI result Body Mass Index 22.9 Const Other: Thin frame normal BMI PE deferred today. Assessment & Plan Assessment & Plan (1) Contraception management: Code(s): Z30.9 - Encounter for contraceptive management, unspecified Category: Medical (2) Cervical cancer screening: Comment: Believes she may have had abnormal Pap smears and has had several we will request records.. Code(s): Z12.4 - Encounter for screening for malignant neoplasm of cervix Category: Medical Plan Patient is here because she has moving all of her care from a previous providers in [place] [facility] [place] and wants not to run out of control pills she has been on them for very long time and she has no problems taking them and takes them every single day at the same time every day in the evening with her Zoloft. She has no other health concerns other than the anxiety which she feels is well managed with the 125 mg Zoloft. She used to have therapy but does not feel she needs it currently and does not have 1 right now her primary care provider managing that for her she does not smoke she does not have any cancers she does not have any other medical contraindications to OCPs she does believe she had some sort of abnormal cells on her Pap smear because she thinks she has had about 4- 5 Pap smears in her young life you will have her sign for records periods I will refill her prescriptions and I reviewing how to take them and she is describing herself as a very diligent pill taker and we will see her for her annual exam whenever it is due. Education done about HPV vaccine and Pap smears and that times pelvic exams do not involve a Pap smear per se will have patient sign for records so that we can review them to see if she had ever had a true abnormal Pap smear. Timing of her next exam would be whenever it is due based on this I am sending enough refill on her pills for more than the next year and she is well 1st in taking pills and she will call us for any problems. Medications: New levonorgestrel-ethinyl estrad 0.1-20 mg-mcg (Vienva) 1 tab PO DAILY 84 tabs 4RF Coding Level of Care Code New Pt Level 3 (38662) Diagnoses Contraception management Z30.9 Cervical cancer screening Z12.4
== END 2024-08-25 13:12 | disposition home or self-care (01) ==
PROVIDERS: PCP Internal Medicine; Visit Provider Advanced Practice Midwife
DX: Z30.9 Encounter for contraceptive management, unspecified (principal)
CPT/HCPCS: 99203

== ENCOUNTER → 2024-08-25 11:12 | Outpatient (BNVA) | payer OTHER, SELFPAY | PROVIDERS: PCP Internal Medicine; Visit Provider Advanced Practice Midwife ==

== ENCOUNTER 2024-12-15 09:25 | Outpatient (AMB) | payer OTHER, SELFPAY ==
--- NOTE | 2024-12-15 09:46 | A.OFFPC_ITS ---
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: No Accompanied by: Self / Same As Patient Allergies Seasonal Allergies Allergy (Mild, Verified 12/15/24 09:55) itchy eyes, runny nose Medication List - Last Reconciled 12/15/24 by Sofie Braxton MD levonorgestrel-ethinyl estrad 0.1-20 mg-mcg (Vienva) 1 tab PO DAILY sertraline (Zoloft) 25 mg PO DAILY 90 days sertraline 100 mg PO DAILY 90 days Tobacco use date assessed: 12/15/24 Dental Screening Dental Screen Date: 12/15/24 Did you have a dental visit in the last 12 months?: Yes Did you have a dental problem in the last 6 months where you did not have access to dental care?: No Was dental information given to patient?: Patient has dentist HPI HPI Comments History of Present Illness Details The patient is a 24-year-old female presenting with a request for a r outine physical examination. She reports a history of scoliosis, with the last x-ray taken showing a 49-degree angle, though no current angle is mentioned. There has been no recent follow-up with her previous consult, Laura, after the last imaging less than a year ago. The patient also experiences anxiety and minimal depression and currently uses Zoloft 125 mg for management. Lack of a psychiatrist or counselor was confirmed. Furthermore, the patient has recently been experiencing the sensation of her ears clogging, particularly in the mornings, without any significant wax accumulation observed. She has not tried using ear drops and was referred to an personnel research psychologist. There is no report of past screening for cervical cancer despite an indication of potential compliance with guidelines suggesting such screenings begin at age 21. - The patient is due for her Tdap vaccin ation, as it was last administered in 2011. - The patient has had routine lab work, revealing normal thyroid and Vitamin D levels indicating no further need for repeat testing at this time. [facility] Medical History Screening for hypothyroidism Urinary frequency Plantar warts Anxiety Surgical History History of removal of skin mole Family History Mother Thyroid cancer Father Diabetes Social History Housing: Apartment Alcohol intake: never Patient Tobacco Use Status: Never used Tobacco e-Cigarette/Vaping Use: Former Use Second Hand Smoke Exposure: No service: No Current occupational status: employed Current occupational exposures/hazards: No Cognitive needs: No Hearing needs: No Vision needs: Yes (glasses) Female Reproductive History Menstrual Age of Menarche: 13 Questionnaire PHQ-9 Over the last 2 weeks, how often have you been bothered by any of the following problems? 1. Little interest or pleasure in doing things: not at all 2. Feeling down, depressed, or hopeless: not at all 3. Trouble falling or staying asleep, or sleeping too much: not at all 4. Feeling tired or having little energy: several days 5. Poor appetite or overeating: not at all 6. Feeling bad about yourself - or that you are a failure or have let yourself or your family down: not at all 7. Trouble concentrating on things, such as reading the newspaper or watching television: not at all 8. Moving or speaking so slowly that other people could have noticed. Or the opposite - being so fidgety or restless that you have been moving around a lot more than usual: not at all 9. Thoughts that you would be better off or of hurting yourself in some way: not at all Total score: 1 Depression Screening Interpretation: Positive Depression Screening Follow-up: Existing condition, In treatment and Follow-up Visit Requested Depression Screening Done: Yes 28147 - PHQ-9 Billing: Yes Source: Developed by Drs. Ivan Dutton, Jennifer Delvalle, Alexey Early and colleagues, with an educational mary from [employer]. Thrive Questionnaire Date Thrive assessed: 12/15/24 I am a: Patient What is your living situation today?: I have a steady place to live Within the past 12 months, did the food you bought not last and you didn't have the money to get more?: Never true Within the past 12 months, did you worry whether your food would run out before you got money to buy more?: Never true Do you have trouble paying for medicines?: I choose not to answer this question Do you have trouble getting transportation to medical appointments?: No Do you have trouble paying your heating and electricity bill?: I choose not to answer this question Do you have trouble taking care of your child, family member or friend?: I choose not to answer this question Do you have trouble with day-to-day activities such as bathing, preparing meals, shopping, managing finances, etc.?: No Are you currently unemployed and looking for a job?: No Are you interested in more education?: I choose not to answer this question Please select the resources that you would like help with: None Currently or been in a relationship where the following occur: No concerns reported THRIVE Score: 0 AUDIT C Alcohol Use Questionnaire (AUDIT-C) 1. How often do you have a drink containing alcohol?: Never Total Score: 0 MEG-7 AMB Questionnaire MEG-7 Date MEG - 7 assessed: 12/15/24 Feeling nervous, anxious, or on edge: 2 = More than half the days Not being able to stop or control worryin = Several days Worrying too much about different things: 1 = Several days Trouble relaxin = Not at all Being so restless that it is hard to sit still: 0 = Not at all Becoming easily annoyed or irritable: 1 = Several days Feeling afraid as if something awful might happen: 1 = Several days Total MEG-7 score (0-4 normal; 5-9 mild; 10-14 moderate; 15-21 severe): 6 Source: Developed by Drs. Ivan Dutton, Jennifer Delvalle, Alexey Early and colleagues, with an educational mary from [employer]. MEG-7 Assessment Billing MEG-7 Assessment Tool: MEG-7 Assessment 45184 Review of Systems Const All systems reviewed & are unremarkable except as noted in HPI and below Card Denies chest pain at rest, Denies chest pain with activity, Denies edema, Denies irregular heart rhythm, Denies claudication, Denies dyspnea, Denies dyspnea on exertion, Denies orthopnea, Denies paroxysmal nocturnal dyspnea and Denies slow heart rate Resp Denies cough, Denies dyspnea and Denies dyspnea on exertion GI Denies abdominal pain, Denies change in bowel habits, Denies excessive flatus, Denies nausea and Denies vomiting Physical exam (Primary Care) Vital Signs: Last Vital Signs BP 110/70 12/15/24 09:48 BMI result Body Mass Index 23.0 Tobacco/Smoking Status: Tobacco use Status Tobacco use date assessed 12/15/24 12/15/24 09:52 Patient Tobacco Use Status Never used Tobacco 12/15/24 09:52 e-Cigarette/Vaping Use Former Use 12/15/24 09:52 PHQ-9: PHQ-9 Score PHQ-9: Total score 1 12/15/24 10:53 Depression Screening Interpretation: Positive Depression Screening Follow-up: Existing condition, In treatment and Follow-up Visit Requested Thrive Assessment: Date of Thrive Assessment Date Thrive assessed 12/15/24 12/15/24 09:52 Currently or been in a relationship where the following occur: No concerns reported HENMT Head: Yes normal to inspection, Yes normocephalic and Yes atraumatic Ears: external ears normal Eyes General: appearance normal, both eyes and all related structures Eyelids: Yes eyelids normal Conjunctivae: conjunctivae normal Neck Neck: Yes normal visual inspection and Yes supple Resp Effort & Inspection: normal respiratory effort Auscultation: clear to auscultation bilaterally Cardio Jugular venous distension: no JVD Rate: regular rate Rhythm: regular rhythm Heart sounds: S1 normal heart sound present and S2 normal heart sound present GI Inspection: Yes normal to inspection Palpation (GI): Soft to palpation and nontender Auscultation: normal bowel sounds Skin General skin exam: no rashes or lesions noted Neuro General: no focal motor deficits Extrem General: Yes full ROM Psych Appearance: grossly normal Office Procedures Flu Questionnaire Does the patient have a severe egg allergy?: No Immunizations Fluarix Triv [id number] (PF) 45 mcg (15 mcg x 3)/0.5 mL IM syringe Performing Provider: Sofie Braxton MD [facility] Documented (not given) by: LEDY Ervin on 12/15/24 10:17 Reason Not Given: Patient Refused Boostrix Tdap 2.5 Lf unit-8 mcg-5 Lf/0.5 mL intramuscular syringe Performing Provider: Sofie Braxton MD Performing Location: [facility] [place] [facility] Administered by: LEDY Ervin on 12/15/24 10:17 Dose Route Admin Location Dispensed Lot Number Expiration Date [facility] Plant Clerk 0.5 mL IM Right Deltoid 0.5 mL [id number] 02/04/27 98157-541-59 [employer] VIS Given Date VIS Provided VIS Publication Date 12/15/24 Single Vaccine 21 Eligibility Eligibility Date Funding Source Not [facility] Eligible 12/15/24 Private Coding Level of Care Code Est Pt Level 3 (32365) Est Pt Prev Care 18-39y(16525) Diagnoses Adult general medical exam Z00.00 Discomfort of both ears H92.03 Laterality: bilateral Additional Codes MEG-7 Assessment Billing - MEG-7 Assessment Tool: MEG-7 Assessment 69142 ([id number]) PHQ-9 - 54574 - PHQ-9 Billing: Yes ([id number]) Time Spent (min) 33 Assessment & Plan Assessment & Plan (1) Adult general medical exam: Code(s): Z00.00 - Encounter for general adult medical examination without abnormal findings Category: Medical (2) Ear discomfort: Code(s): H92.09 - Otalgia, unspecified ear Category: Medical Qualifiers: Laterality: bilateral Qualified Code(s): H92.03 - Otalgia, bilateral Plan - Routine vaccination with Tdap is recommended due to being overdue. - Referral to an personnel research psychologist to evaluate morning ear clogging. - Continue Solove 125 mg for anxiety and minimal depression. - Encourage follow-up with the ordering provider of the scoliosis x-ray for interpretation and management guidance. Patient was informed and verbally consented to the use of an ambient scribe for clinic note documentation during this visit. During the visit, we discussed the importance of staying up-to-date with vaccinations, and I recommended getting the Tdap vaccine as the patient is overdue. For the new onset of ear clogging in the morning, I suggested a referral to an personnel research psychologist for further evaluation. I confirmed that her anxiety and minimal depression are managed with Solove 125 mg, which she should continue taking. Regarding the scoliosis, I advised the patient to contact [place] for an interpretation of her recent imaging. We outlined that her thyroid and Vitamin D levels are normal, so further testing is not needed at this time. Orders: Orders TDaP Immunization Today Z23 - Encounter for immunization Influenza [id number] Immunization Today Z23 - Encounter for immunization Referrals 2 Ear/Nose/Throat Referral H92.09 - Otalgia, unspecified ear Patient Instructions: - Tdap vaccine to be done today. - Follow through with the referral to see an personnel research psychologist. - Continue using Zoloft 125 mg as prescribed. - Contact Laura regarding follow-up for the scoliosis x-ray interpretation. - Maintain tobacco and alcohol-free lifestyle.
[2024-12-15 09:48] VITALS: BP 110/70; BMI 23.0
--- OUTSIDE RECORDS SUMMARY | 2024-12-15 13:46 | XMS_ITS | Clinical Summary ---
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 Name Role Phone Unavailable Primary Care Provider Unavailabl e Immunizations Name Administration Dates Next Due DTaP 04/27/2006, 3,05/02/2001,02/26,2000 Hep B, ped/adol 04/12/2005,10/25/2001,08/23/2001 Hib (PRP-T) 02/09/2003, 1,02/26/2001,12/20 IPV 04/27/2006, 1,02/26/2001,12/20 Influenza, injectable, quadr ivalent, preservative free 07/20/2015,11/26/2013 Influenza, intranasal, quadrivalent 11/27/2012 MMR 04/12/2005,12/20/2001 Meningococcal Conj (Menactra) MCV4P 02/26/2012 Pneumococcal Conjugate 05/02/2001,02/26/2001,11/2000 Tdap 02/26/2012 Varicella 05/31/2007,12/20/2001 Family History Relation Name Status Comments Father Alive healthy, had ap pendix removed 2008, overweight, migraines age: 45 Maternal Grandfather Alive HTN, di verticulosis part of intestine removed diagnosed with Asthma, unspecified Maternal Grandmother Alive healthy Mother Alive healthy, menarc he age 12 age: 44 Paternal Grandfather pancrea tic cancer, passed 2006 diagnosed with MALIGNANT NEOPLASM NOS Paternal Grandmother Alive HTN, hi gh cholesterol, double knee replacement diagnosed with Asthma, unspecified, Hypertension Social History Tobacco Use Types Packs/Day Years Used Date Smoking Tobacco: Never Assessed Comments Unknown Sex and Gender Information Value Date Recorded Sex Assigned at Not on file Legal Sex Female 6:11 PM EDT Gender Identity Not on file Sexual Orientation Not on file Last Filed Vital Signs Vital Sign Reading Time Taken Comments Blood Pressure 110/62 02/23/2016 12:00 AM EDT Pulse - - Temperature 36.8 ??C (98.2 ??F) 02/23/2016 12:00 AM E DT Respiratory Rate - - Oxygen Saturation - - Inhaled Oxygen Concentration - - Weight 44.2 kg (97 lb 6.4 oz) 02/23/2016 12:00 A M EDT Height 158.8 cm (5' 2.5 ) 02/23/2016 12:00 AM ED T Body Mass Index 17.53 02/23/2016 12:00 AM EDT Plan of Treatment Health Maintenance Due Date Last Done Comments HPV Vaccines (1 - 3-dose series) 2015 DTaP,Tdap,and Td Vaccines (7 - Td or Tdap) 02/25/2022 02/26/2012, 04/27/2006, 02/09/2003, Additional history exists Influenza Vaccines (#1) 2024 07/20/20 15, 11/26/2013, 11/27/2012 COVID-19 Vaccine ( season) 2024 Pneumococcal Vaccine Aged Out 05/02/2001, 02/26/2001, 2000 No longer eligible based on patient's age to complete this topic HIB Vaccines Completed 02/09/2003, 04/19, 02/26/2001, Additional history exists Hepatitis B Vaccines Completed 04/12/2005, 10/25/2001, 08/23/2001 MMR Vaccines Completed 04/12/2005, 12/20/2001 IPV Vaccines Completed 04/27/2006, 03/2001, 02/26/2001, Additional history exists Varicella Vaccines Completed 05/31/2007, 12/20/2001 Meningococcal Vaccine Aged Out 02/26/2012 No damaris cathleen eligible based on patient's age to complete this topic Hepatitis A Vaccines Aged Out No long er eligible based on patient's age to complete this topic Men B Vaccine Aged Out No longer stephanig yi based on patient's age to complete this topic
--- OUTSIDE RECORDS SUMMARY | 2024-12-15 13:46 | XMS_ITS | Encounter Summary ---
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 Name Role Phone Griselda Myers MD Primary Care Provider [phone] Encounter Details Date Type Department Care Team (Late st Contact Info) Description 04/07/2018 Conversion Encounter [facility] [address] [place] [address] Griselda Myers MD [address] [place] [address] Social History Tobacco Use Types Packs/Day Years Used Date Smoking Tobacco: Never Assessed Comments Unknown Sex and Gender Information Value Date Recorded Sex Assigned at Not on file Legal Sex Female 6:11 PM EDT Gender Identity Not on file Sexual Orientation Not on file documented as of this encounter Plan of Treatment Not on file documented as of this encounter Visit Diagnoses Not on filedocumented in this encounter Care Teams Structural Steel Erector Relationship Specialty Start Date End Date Griselda Myers MD [address] [place] [address] PCP - General 03/27/18 09/29/24 documented as of this encounter
--- OUTSIDE RECORDS SUMMARY | 2024-12-15 13:47 | XMS_ITS | Encounter Summary ---
Author Organization [facility] Address [address] [place] [phone] Phone Care Team Providers Care Clinical Immunologist Name Role Phone Griselda Myers MD Primary Care Provider [phone] Encounter Details Date Type Department Care Team (Late st Contact Info) Description 12/10/2009 Documentation [facility] Family Medicine [address] [place], [place] [id number] Family Medicine, Physician [address] [place] [address] Social History Tobacco Use Types Packs/Day Years [...] on filedocumented in this encounter Care Teams Clinical Immunologist Relationship Specialty Start Date End Date [facility]isel[facility] [address] [facility] [address] P[facility] - General 03/27/18 09/29/24 documented as of this encounter
--- OUTSIDE RECORDS SUMMARY | 2024-12-15 13:47 | XMS_ITS | Clinical Summary ---
Author Organization [facility] Address [address] [place] [address] Care Team Providers Care Cigar Brander Name Role Phone Unavailable Primary Care Provider Unavailabl e Social History Tobacco Use Types Packs/Day Years Used Date Smoking Tobacco: Never Assessed Comments Unknown Sex and Gender Information Value Date Recorded Sex Assigned at Not on file Legal Sex Female 10:22 AM EDT Gender Identity Not on file Sexual Orientation Not on file Plan of Treatment Health Maintenance Due Date Last Done Comments Depression: Screening Annual ly using PHQ-2/9 in Adults 18 yrs or above (or HM Modifier)([facility]) 2018 Hepatitis C Virus Infection in Adolescents and Adults: Screening (or Modifier) ([facility]) 2018 SDOH Screening Reminder: Vera ually for all adults ([facility]) 2018 Tobacco Smoking Cessation: i n Adults excluding Women: Behavioral and Pharmacotherapy Interventions ([facility]) 2018 DTaP/Tdap/Td Vaccines ([facility]) (1 - Tdap) 2019 Lipid Screening: Once for Wo men aged 20 to 45 yrs ([facility]) 2020 Cervical Cancer Screenin 1-65 yrs of age (or Modifier) 2021 Cervical Cancer Screening: P ap every 3 yrs pts age 21-65 2021 Cervical Cancer: Pap Screeni ng with Modifier timing ([facility]) 2021 Cervical Cancer: hrHPV alone or with cotesting Pap for Pts 30-65yrs screening every 5yrs ([facility]) 2021 Flu Vaccination: Yearly for ages 18mos through 64 years (or Modifier)([facility]) 06/19/2024 COVID-19 Vaccine Screening: Initial Series and Booster Status ([facility]) (2023- season) 2024 Zoster/Shingles Vaccine Seri es Screening: Adults aged 18+ yrs (or HM Modifiers)([facility]) (1 of 2) 2050 Pneumococcal Vaccination Scr eening: Pts 0-19 & 19-64 yrs of age ([facility]) Aged Out No longer eligible based on patient's age to complete this topic Medical Devices Not on file Insurance [facility]
--- OUTSIDE RECORDS SUMMARY | 2024-12-15 13:48 | XMS_ITS | Data Portability ---
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 Plan of Treatment Reminders Order Date Submit Date Provider Last Modified By Organization Details Last Modified Time Details Appointments None recorded. Lab pap test, thinprep, cervical 2022 023 [email or web address] [facility], [address] [place], [address], 3 07:35:56 chlamydia sp, culture, unspecifie d specimen 2022 023 [email or web address] [facility], [address] [place], [address], 3 07:35:57 NG DNA, PCR, genital 2022 023 [email or web address] [facility], [address] [place], [address], 3 07:35:57 Referral None recorded. Procedures None recorded. Surgeries None recorded. Imaging None recorded. Medication Orders azithromyc in 250 mg tablet 2020 021 [email or web address] [id number], [address] [place], [address], 2 09:54:07 Depo-Prove ra 150 mg/mL intramuscu lar suspension 2021 022 [email or web address] 1 [id number], [address] [place], [address], 2 10:21:11 Depo-Prove ra 150 mg/mL intramuscu lar suspension 2021 022 [email or web address] 1 [id number], [address] [place], [address], 2 10:28:17 Depo-Prove ra 150 mg/mL intramuscu lar suspension 2021 022 [email or web address] 1 [id number], [address] [place], [address], 2 10:35:23 Aviane 0.1 mg-20 mcg tablet 2022 023 MARGARET [id number], [address] [place], [address], 3 13:06:06 Patient TargetsNo targets recorded. Patient Instructions Encounter Date Encounter Id Patient Instructions Last Modified By Organization Details Last Modified Time 10/18/2021 [id number] She is here for a 6 day history of a tender lump under the right areolae. She had the nipples pierced 4 months ago. On exam: there is a 1 cm , deep, tender, slightly fluctuant density just inferior and underneath the right nipple. This appears to be a loculated infection. No purulence is noted in the pierced nipple holes, upon gentle pressure. She appears to have an infection after piercing her right nipple. Will start a 5 day Z pack to see if she responds to this. If she does not get enough of a response then may switch to a cephalosporin, or doxycycline. She is on depo provera for control, but her first injection was just on 10/07/21, so she would need a negative test prior to initiating either of those, to be cautious. All questions answered. Hot soaks BID explained. Call if it worsens. Call in a few days to let me know how it is going, if it is improving. Face to face discussion 30 minutes edd Not available 10/18/2021 09:20:45 01/03/2022 [id number] shot for control: care instructions Not available 01/03/2022 10:21:11 03/28/2022 [id number] shot for control: care instructions Not available 03/28/2022 10:28:15 06/16/2022 [id number] shot for control: care instructions Not available 06/16/2022 10:35:23 12/11/2022 [id number] learning about healthy weight edd Not available 12/11/2022 13:05:46 She is her for annual exam, had her last depo provera injection 06/16/22, has not resumed menses yet, is using condoms. Same partner for 18 months, they do not desire fertility at this time. she is considering beginning the OCP. _ Note from 2020: She is here for annual exam. She had been on the OCP but didn't like taking a pill every day so she switched to the patch, however she didn't like the patch because the glue smelled bad and stuck to her skin, so she switched back to the 20 mcg pill. However she had been off the patch for a month before starting the pil and noticed that off medication she felt much happier and less anxious, but when she restarted the 20 mcg pill, I went back to the way I had been. She would like a lower dose pill than the 20 mcg, as she cannot tolerate the 20 mcg pill due to emotional side effects. She had a shelter partner for years, they broke up, now she has a new partner for the past month or two. We discussed the Sunday start process for the OCP, that the pill will not be effective for the first month of use, and the interaction with antibiotics. We discussed the need to use a condom during antibiotic use and also for a minimum of three weeks following the use of antibiotics. We discused interactions with some herbal and OTC meds, such as [place] Arvin's Wort. Possible side effects, and the stated risk of one in 10,000 to develop a blood clot/ DVT/PE were also discussed. All questions answered, rx to be called in to pharmacy. She appears to be doing well. the depo provera injection wore off at the end of 09/09, so it is not unexpected to not have a menses back yet. she will either start the OCP now, or with menses, she is considering which she would prefer to do. Monthly self breast exam was taught, and stressed, and is advised to call if she discovers any new mass in the breast. [email or web address] Not available 12/11/2022 13:08:14 Reason for Referral None Reported. Results Created Date Observation Date Name Description Value Unit Range Abnormal Flag Note LastModifiedBy Organization Detail LastModifiedTime 10/07/20 21 10/07/2021 pregn gia test, urine HCG negati ve Not Available In-Office Order Internal Use Only DO Not Attach Compendium DO Not Attach Compendium, Do Not Delete/merge, [id number] 10/07/2021 10:52:58 12/11/19 23 12/12/[address]/GC AMPLI FIED PROBE C.trach.amp probe thin prep (neg) NEGAT RAMANA No Chlam ydia Trach omati s RNA detec zeinab in this patie nt's sampl e (REFE RENCE RANGE /NORM AL VALUE : NOT DETEC ZEINAB) Note: This test uses trans cript ion- media zeinab ampli ficat ion metho d to detec t rRNA from C. Trach omati s Not Available [facility] [address], [place], [address], 12/12/2022 13:37:09 12/11/19 23 12/12/[address]/GC AMPLI FIED PROBE GC amplified probe thin prep (neg) NEGAT RAMANA No Neiss eria Gonor rhoea e RNA detec zeinab in this patie nt's sampl e (REFE RENCE RANGE /NORM AL VALUE : NOT DETEC ZEINAB) NOTE: This test uses trans cript ion-m ediat ed ampli ficat ion metho d to detec t rRNA from N.Rickie orrho eae. A negat ramana resul t does not precl ude infec tion. In the case of a negat ramana urine resul t, testi ng of an endoc ervic al(fe male) or ureth ral (male ) speci men is recom ramon d if there is high clini marti suspi cion of infec tion. Due to very high sensi tivit y of Nucle ic Acid Ampli ficat ion Test, false posit ramana resul ts may occur . There fore, speci men handl ing is extre jeanette impor tant. In patie nts in whom the disea se is unlik lio, addit ional sampl e for testi ng shoul d be consi dered after an initi al posit ramana resul t. The perfo rmanc e maury cteri stics of this test have not been evalu ated in child monste. The Aptim a Combo 2 assay is not inten ded for the evalu ation of suspe cted sexua l abuse or for other medic o-leg al indic ation s. The order ing provi aubrie shoul d asses s if the patie nt had conse nsual sex witho ut risk of sexua l abuse . [facility] if neede d. Conta ct phone numbe r [phone]. Thera peuti c failu re or succe ss canno t be deter mined with the Aptim a Combo 2 assay since nucle ic acid may persi st follo wing appro priat e antim icrob ial thera py. The Cente rs for Disea se Contr ol and Preve ntion ([facility]) recom mends confi rmato ry retes ting using cultu re or a diffe rent nucle ic acid ampli ficat ion test when posit ramana resul ts occur , if indic ated. 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 Satis facto ry for evalu ation . Endoc ervic al/tr ansfo rmati on zone prese nt. Clini marti Histo ry: Date of Last Menst rual Perio d: 06/07 22 Depo Menst rual Histo ry: not avail able Contr acept ramana Histo ry: Hormo ne Thera py: Depo Ancil wyatt Testi ng: HPV (ASCU S) Chlam ydia/ GC Case image d by the ThinP rep Imagi ng Syste m with peter fleming or christal mckeon. Perfo rmed at [facility] ate Refer ence [facility], [address] [place] Clini marti Histo ry (othe r): Z01.4 19, Z11.3 , ROUTI NE scree n, LPS 08/08 negat ramana Phone #: [phone], On-Ca ll Patho logis t: [id number] Not Available [facility] [address], [place], [address], 12/14/2022 16:07:44 Result Notes None recorded. Problems Name Problem SNOMED Code Status Onset Date Resolution Date Notes Provider Name and Address Organization Details Recorded Time Genital Molluscum contagiosum [id number] Active 2017 Susan Cisneros MD [address], [place], [address], [place] [facility], 8 14:52:40 Candidal vulvovaginitis 66455384 Active 2017 Susan Cisneros MD [address], [place], [address], [place] [facility], 8 15:19:47 Candidiasis of skin 62127532 Active 2017 Susan Cisneros MD [address], [place], [address], [place] - [facility], 8 15:19:57 Problem Notes None recorded. Procedures Surgical History Date Name Laterality Status Provider Name and Address Organization Details Recorded Time 0 Colposcopy completed Susan Cisneros MD [address], [place], [address], [place] [facility], 11/20/2019 10:05:33 8 Destroy condyloma, extensive completed Susan Cisneros MD [address], [place], [address], [place] [facility], 05/28/2018 12:13:41 1 Other completed Shira Simons [place] - [facility], 05/04/2016 14:24:28 Imaging Results None recorded. Procedure Notes None recorded. Medical Equipment None Reported. Allergies No known drug allergies Medications Name Sig Start Date Stop Date Status Note LastModified by Organization Details LastModified Time triamcinalo ne/cerave APPLY DAILY FROM NECK DOWN AFTER SHOWERS. NOT TO BE USED ON FACE. 11/20 completed Not Available Not Available Not Available Prescriptio n - Prior Authorizati on Request 01/21 completed Not Available Not Available Not Available terconazole 0.4 % vaginal cream INSERT 1 APPLICATO R(S)FUL EVERY DAY BY VAGINAL ROUTE FOR 7 DAYS. 12/24 completed Not Available Not Available Not Available prednisone 10 mg tablet 10/29 completed Not Available Not Available Not Available cetirizine 10 mg tablet TAKE 1 TABLET BY MOUTH EVERY DAY 11/20 completed Not Available Not Available Not Available oxybutynin chloride ER 10 mg tablet,exte nded release 24 hr 02/26 completed Not Available Not Available Not Available azithromyci n 250 mg tablet TAKE 2 TABLETS (500 MG) BY ORAL ROUTE ONCE DAILY FOR 1 DAY THEN 1 TABLET (250 MG) BY ORAL ROUTE ONCE DAILY FOR 4 DAYS 01/03 completed Not Available Not Available Not Available lidocaine 5 % topical cream Apply 1 applicati on 3 times a day by topical route as needed. 12/24 completed Not Available Not Available Not Available fluconazole 150 mg tablet TAKE 1 TABLET(S) EVERY DAY BY ORAL ROUTE AT BEDTIME FOR 1 DAY. 04/04 completed Not Available Not Available Not Available phenazopyri dine 200 mg tablet TAKE 1 TABLET BY MOUTH 3 TIMES A DAY 07/03 completed Not Available Not Available Not Available prednisone 20 mg tablet 07/03 completed Not Available Not Available Not Available sertraline 100 mg tablet TAKE 1 TABLET BY MOUTH EVERY DAY FOR 90 DAYS active Not Available Not Available No t Available penicillin V potassium 500 mg tablet 05/28 completed Not Available Not Available Not Available sulfamethox azole 800 mg-trimetho prim 160 mg tablet TAKE 1 TABLET BY MOUTH TWICE A DAY 03/28 completed Not Available Not Available Not Available Gas Relief (simethicon e) 80 mg chewable tablet CHEW 1 TAB 3-4 TIMES A DAY NEEDED FOR ABDOMINAL DISTENTIO N active Not Available Not Available No t Available tobramycin 0.3 % eye drops 07/03 completed Not Available Not Available Not Available Gentle Laxative (bisacodyl) 5 mg tablet,kristi yed release PLEASE SEE ATTACHED FOR DETAILED DIRECTION S active Not Available Not Available No t Available Citrucel 500 mg tablet TAKE 1 TABLET BY MOUTH THREE TIMES A DAY active Not Available Not Available No t Available docusate sodium 100 mg capsule TAKE 2 CAPSULES BY MOUTH AT BEDTIME active Not Available Not Available No t Available sertraline 25 mg tablet TAKE 1 TABLET BY MOUTH DAILY active Not Available Not Available No t Available lidocaine HCl 3 % topical cream apply one applicati on topically TID as needed 12/24 completed Not Available Not Available Not Available hydrocortis one 2.5 % topical cream APPLY SMALL AMOUNT TO AFFECTED AREA TWICE DAILY FOR UP TO 2 WEEKS. NOT COVERED 11/20 completed Not Available Not Available Not Available montelukast 10 mg tablet 11/20 completed Not Available Not Available Not Available clindamycin 2 % vaginal cream INSERT 1 APPLICATO R(S)FUL EVERY DAY BY VAGINAL ROUTE AT BEDTIME FOR 7 DAYS. 12/24 completed Not Available Not Available Not Available nystatin 100,000 unit/gram topical powder APPLY TO AFFECTED AREA TWICE A DAY 11/20 completed Not Available Not Available Not Available polyethylen e glycol 3350 17 gram/dose oral powder 17 G BY MOUTH DAILY active Not Available Not Available No t Available ondansetron 4 mg disintegrat ing tablet TAKE 1 TABLET BY MOUTH EVERY 8 HOURS FOR 5 DAYS active Not Available Not Available No t Available medroxyprog esterone 150 mg/mL intramuscul ar suspension INJECT 1 MILLILITE R INTRAMUSC ULARLY EVERY 3 MONTHS 2022 active Not Available Not Available Not Avai lable loratadine 10 mg tablet TAKE 1 TABLET IN THE EVENING AND TAKE 1 CETIRIZIN E (ZYRTEC) TABLET IN THE MORNING 11/20 completed Not Available Not Available Not Available mometasone 0.1 % topical cream 11/20 completed Not Available Not Available Not Available amoxicillin 875 mg-potassiu m clavulanate 125 mg tablet 11/20 completed Not Available Not Available Not Available Gentle Laxative (bisacodyl) 10 mg rectal suppository UNWRAP AND INSERT 1 SUPPOSITO RY RECTALLY DAILY NEEDED FOR CONSTIPAT ION active Not Available Not Available No t Available nitrofurant oin monohydrate /macrocryst als 100 mg capsule TAKE 1 CAPSULE BY MOUTH TWICE A DAY FOR 10 DAYS active Not Available Not Available No t Available Sronyx 0.1 mg-20 mcg tablet TAKE 1 TABLET BY MOUTH EVERY DAY active Not Available Not Available No t Available Linzess 145 mcg capsule TAKE 1 CAPSULE BY MOUTH EVERY DAY active Not Available Not Available No t Available Xulane 150 mcg-35 mcg/24 hr transdermal patch APPLY 1 PATCH EVERY WEEK BY TRANSDERM AL ROUTE. 08/08 completed Not Available Not Available Not Available Ryanne Fe 12/08 (28) 1 mg-20 mcg (21)/75 mg (7) tablet active Not Available Not Available N ot Available Vitals Date Recorded Body height Body mass index (BMI) Percentile per age and sex Body mass index (BMI) Body weight Body temperature Heart rate Systolic blood pressure Diastolic blood pressure Provider Name and Address Organization Details Last Updated DateTime 1 162.56 cm 18 % 19.3 kg/m2 64896.5 g 97.4 [degF] 78 /min 105 mm[Hg] 63 mm[Hg] Shira Simons [place] - [facility], 1 09:00:11 Date Recorded Body height Body mass index (BMI) Body weight Body temperature Heart rate Systolic blood pressure Diastolic blood pressure Provider Name and Address Organization Details Last Updated DateTime 2 162.56 cm 19.2 kg/m2 58353.3 5 g 97.4 [degF] 74 /min 109 mm[Hg] 69 mm[Hg] Shira Stallings in [facility], 2 09:54:35 Date Recorded Body height Body mass index (BMI) Body weight Heart rate Body temperature Systolic blood pressure Diastolic blood pressure Provider Name and Address Organization Details Last Updated DateTime 2 162.56 cm 19.2 kg/m2 51851.3 5 g 87 /min 97.2 [degF] 107 mm[Hg] 66 mm[Hg] Sarah Stallings in [facility], 2 09:51:07 Date Recorded Body height Body mass index (BMI) Body weight Heart rate Systolic blood pressure Diastolic blood pressure Provider Name and Address Organization Details Last Updated DateTime 2 162.56 cm 19.7 kg/m2 84225.1 2 g 67 /min 110 mm[Hg] 71 mm[Hg] Sarah Stallings in [facility], 2 09:58:15 Date Recorded Body height Body mass index (BMI) Body weight Heart rate Systolic blood pressure Diastolic blood pressure Provider Name and Address Organization Details Last Updated DateTime 3 162.56 cm 20.1 kg/m2 81545.0 3 g 91 /min 115 mm[Hg] 67 mm[Hg] Shira Stallings in [facility], 3 10:23:11 Social History Question Answer Notes LastModified by Organizat ion Details LastModified Time Tobacco Smoking Status Never Smoker KRISTI Meyer in [facility], 05/04/2016 14:22:17 What Is Your Level Of Alcohol Consumption? Occasional Information not available 08/08/2021 How Many Years Have You Consumed Alcohol? 1 Information not available 08/08/2021 What Is Your Level Of Caffeine Consumption? None Information not available 05/20/2021 In The 14 Days Before Symptom Onset, Have You Had Close Contact With A Laboratory-confir med COVID-19 While That Case Was Ill? No Information not available 08/08/2021 In The 14 Days Before Symptom Onset, Have You Had Close Contact With A Person Who Is Under Investigation For COVID-19 While That Person Was Ill? No Information not available 08/08/2021 Have You Been To An Area Known To Be High Risk For COVID-19? No Information not available 08/08/2021 Are You Currently Employed? Yes Information not available 08/08/2021 Diabetes No Information no t available 08/06/2020 What Type Of Diet Are You Following? REGULAR Information not available 05/04/2016 Which Illicit Or Recreational Drugs Have You Used? No Information not available 05/04/2016 Do You Reside In Or Have You Traveled To An Area Where Ebola Virus Transmission Is Active? No Information not available 07/03/2017 Do You Or Have You Ever Used E-cigarettes Or Vape? Never Used Electronic Cigarettes Information not available 11/20/2019 Education 12 Information no t available 05/28/2018 What Is The Highest Grade Or Level Of School You Have Completed Or The Highest Degree You Have Received? [id number] Information not available 08/08/2021 Who Is Your Employer? [employer] Information not available 12/11/2022 What Is Your Occupation? [employer] Information not available 12/11/2022 How Many Days In The Past Year Have You Had A Heavy Drinking Consumption (4+ Female, 5+ Male)? 0 Information no t available 07/03/2017 Are There Any Guns Present In Your Home? Yes Information not available 08/08/2021 High Number Of Sexual Partners No Information not available 05/04/2016 Live Alone Or With Others? With Others Information not available 11/20/2019 To Which Gender Do You Self-identify? Female Information not available 05/04/2016 Marital Status Single Informatio n not available 05/04/2016 What Was The Date Of Your Most Recent Tobacco Screening? 12/11/2022 Information not available 12/11/2022 What Is Your Relationship Status? Single Information not available 08/08/2021 Seat Belts Used Routinely Yes Information not available 11/20/2019 Are You Sexually Active? Yes Information not available 07/03/2017 Do You Or Have You Ever Used Smokeless Tobacco? Never Used Smokeless Tobacco Information not available 11/20/2019 How Much Tobacco Do You Smoke? No Information not available 08/17/2017 General Stress Level Medium Information not available 01/21/2019 Do You Feel Stressed (tense, Restless, Nervous, Or Anxious, Or Unable To Sleep At Night)? [id number] Information not available 08/08/2021 Do You Use Any Illicit Or Recreational Drugs? No Information not available 08/08/2021 How Many Years Have You Smoked Tobacco? 0 Information not available 08/17/2017 Have You Recently (within The Last 12 Weeks, Or During A Current ) Traveled To Or Lived In A Zika-affected Area? No Information not available 05/04/2016 Do You Or Have You Ever Used Any Other Forms Of Tobacco Or Nicotine? No Information not available 08/08/2021 How Many Days In The Past Year Have You Consumed 4 Or More Drinks? 0 Information no t available 08/08/2021 Sex: Female Functional Status Question Answer Note LastModified by Organization D etails LastModified Time What is your exercise level? Moderate Information not available 07/03/2017 Mental Status None recorded. Family History Relationship Description Onset Age of this Age Resolved Age Notes LastModified by Organization Details LastModified Time Mother Problem health y.. [email or web address] Not available 07/03/2017 13:56:54 Father Diabetes mellitus 50 [email or web address] Not available 2019 12:55:55 Notes:no known problems Medical History Condition Response Anesthesia complications N High Blood Pressure N Candidate for MyRisk panel N Autoimmune Condition N Thyroid Problems N Kidney or Bladder Problems N GI Problems N Lung Disease N Depression N Defects or Inherited Disease N History of Ovarian Cancer N Anemia N History of Breast Cancer N ILEANA exposure N BRCA testing in past N Osteopenia N Psychiatric Illness N Anxiety Disorder Y Diabetes N Arthritis N Headaches or Migraines N Infertility N Asthma N History of Cancer N Endometriosis N Hepatitis N Heart Disease N Hypertension N Osteoporosis N Gynecological History Statement/Question Response Dysmenorrhea N Flow Moderate Date of LMP 06/16/2022 Frequency of Cycle (Q days) 28 Menses Monthly Y Duration of Flow (days) 5 Age at Menarche 13 Current Control Method Condoms Obstetrics History GPAL:G 0 P 0 0 0 0 Immunizations Vaccine Type Date Status Note Provider Nam e and Address Organization Details Recorded Time Influenza, split virus, quadrivalent, preservative 9 completed KRISTI Mortensen in [facility], 11/20/2019 09:24:02 COVID-19, mRNA, LNP-S, PF, 30 mcg/0.3 mL dose 1 completed KRISTI Bowers in [facility], 03/28/2022 09:51:58 COVID-19, mRNA, LNP-S, PF, 30 mcg/0.3 mL dose 1 completed KRISTI Bowers in [facility], 09/12/2021 13:44:43 influenza, unspecified formulation 2 completed KRISTI Meyer in [facility], 12/11/2022 10:24:38 Past Encounters Encounter ID Performer Location Encounter Start Date Encounter Closed Date Diagnosis/Indication Diagnosis SNOMED-CT Code Diagnosis ICD10 Code Diagnosis Note [id number] MD SUSAN Paz MD [address] [place] [address] 05/04/2016 14:07:39 05/04/2016 15:06:52 Specialized medical examination 22250593 Z01.419 Venereal d isease screening 624537743 Z11.3 [id number] MD SUSAN Paz MD [address] [place] [address] 07/03/2017 13:49:36 07/03/2017 15:03:04 Specialized medical examination 05662562 Z01.419 Venereal d isease screening 562699998 Z11.3 [id number] MD SUSAN Paz MD [address] [place] [address], [address] [place] [phone] 08/17/2017 13:19:02 08/17/2017 15:52:15 Candidal vulvovaginitis 58799384 B37.3 [id number] MD SUSAN Paz MD [address] [place] [address],[facility] [address] [place] [phone] 09/03/2017 14:51:39 09/03/2017 15:56:42 Candidal vulvovaginitis 19617886 B37.3 Ulceration of vulva 6864 0004 N76.6 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 A60.09 [id number] MD SUSAN Paz MD [address] [place] [address],[facility] [address] [place] [phone] 09/13/2017 10:43:06 09/13/2017 12:58:54 Venereal disease screening 956016473 Z11.3 Candidal vulvovaginitis 43556348 B37.3 [id number] MD SUSAN Paz MD [address] [place] [address] 10/18/2017 13:16:22 10/18/2017 16:05:21 Candidal vulvovaginitis 29732044 B37.3 Venereal d isease screening 022300767 Z11.3 Vaginitis [id number] N76.0 [id number] MD SUSAN Paz MD [address] [place] [address] 5 12/03/2017 11:02:43 12/03/2017 12:12:38 Vulvitis 05348767 N76.2 B96.89 Candidal vulvovaginitis [id number] B37.3 [id number] MD SUSAN Paz MD [address] [place] [address] [address] [place] [address] 12/24/2017 09:31:35 12/24/2017 11:57:11 Candidal vulvovaginitis 17447410 B37.3 Molluscum contagiosum infection 51593110 B08.1 [id number] MD SUSAN Paz MD [address] [place] [address],[address] [address] 02/26/2018 14:13:23 02/26/2018 16:17:18 Genital Molluscum contagiosum [id number] B08.1 [id number] MD SUSAN Paz MD [address] [place] [address],[address] [address] 04/02/2018 14:55:29 04/02/2018 15:55:16 Genital Molluscum contagiosum [id number] B08.1 Vulvitis [id number] N76.2 B96.89 [id number] MD SUSAN Paz MD [address] [place] [address] 5 05/28/2018 10:37:24 05/28/2018 14:31:31 Genital Molluscum contagiosum [id number] B08.1 [id number] MD SUSAN Paz MD [address] [place] [address] 5 07/19/2018 13:38:18 07/19/2018 14:21:31 Specialized medical examination 16436227 Z01.419 Venereal d isease screening 027140968 Z11.3 Genital Mo lluscum contagiosum 815901953 B08.1 [id number] MD SUSAN Paz MD [address] [place] [address],[address] [address] 10/15/2018 14:57:20 10/15/2018 15:45:57 Atypical squamous cells of undetermined significance on cervical Papanicolaou smear 088298497 R87.610 Candidal vulvovaginitis 87431248 B37.3 Candidiasis of skin 4988 3006 B37.2 [id number] MD SUSAN aPz MD [address] [place] [address],[address] [place] [address] 10/29/2018 14:39:57 10/29/2018 15:48:46 Candidal vulvovaginitis 56046830 B37.3 [id number] MD SUSAN Paz MD [address] [place] [address],[place] [address] 5 01/21/2019 14:15:57 01/21/2019 15:26:44 [id number] MD SUSAN Paz MD [address] [place] [address],[address] [facility] [place] [address] 01/31/2019 14:17:08 02/03/2019 13:42:53 Venereal disease screening 294785721 Z11.3 Candidal vulvovaginitis 84546393 B37.3 [id number] MD SUSAN Paz MD [address] [place] [address],[place] [address] 04/04/2019 14:15:11 04/04/2019 15:03:39 Atypical squamous cells of undetermined significance on cervical Papanicolaou smear 145878622 R87.610 [id number] MD SUSAN Paz MD [address] [place] [address],[place] [address] 11/20/2019 09:12:12 11/21/2019 15:08:32 Cytologic finding [id number] R87.612 Atypical s quamous cells of undetermined significance on cervical Papanicolaou smear 635442432 R87.610 [id number] MD SUSAN Paz MD [address] [place] [address],[place] [address] 5 08/06/2020 12:50:24 08/06/2020 13:50:18 Specialized medical examination 33231916 Z01.419 Venereal d isease screening 437623919 Z11.3 [id number] MD SUSAN Paz MD [address] [place] [address],[place] [address] 05/20/2021 10:30:23 05/20/2021 12:06:14 Dysmenorrhea [id number] N94.6 N94.4 [id number] MD SUSAN Paz MD [address] [place] [address],[place] [address] 08/08/2021 08:59:44 08/08/2021 10:52:31 Specialized medical examination 90689058 Z01.419 Venereal d isease screening 078598403 Z11.3 [id number] MD SUSAN Paz MD [address] [place] [address],[place] [address] 09/12/2021 13:42:20 09/12/2021 14:54:26 Dysmenorrhea 069791078 N94.6 N94.4 [id number] MD SUSAN Paz MD [address] [place] [address],[place] [address] 10/07/2021 10:15:14 10/07/2021 13:15:08 Dysmenorrhea [id number] N94.4 [id number] MD SUSAN Paz MD [address] [place] [address],[place] [address] 10/18/2021 08:56:55 10/18/2021 10:49:55 Nonpuerperal abscess of right breast [id number] N61.1 [id number] MD SUSAN Paz MD [address] [place] [address],[place] [address] 5 01/03/2022 09:50:14 01/03/2022 10:27:14 Dysmenorrhea 127067780 N94.4 [id number] MD SUSAN Paz MD [address] [place] [address],[place] [address] 03/28/2022 09:48:45 03/28/2022 10:50:52 Dysmenorrhea [id number] N94.4 [id number] MD SUSAN Paz MD [address] [place] [address],[place] [address] 5 06/16/2022 09:54:15 06/16/2022 10:57:32 Dysmenorrhea [id number] N94.4 [id number] MD SUSAN Paz MD [address] [facility],[address] [place] [address] 12/11/2022 10:19:43 12/11/2022 14:28:00 Specialized medical examination 66595527 Z01.419 Venereal d isease screening 275493817 Z11.3 Health Concerns Section Related Observation LastModified by Organization Detai ls LastModified Time None Recorded Concern Status LastModified by Organization Details LastModified Time None Recorded Advance Directives Directive None Recorded Payers Encounter Date Sequence Insurance Name Policy Number Policy Mejía Covered Member ID Mejía Member ID Guarantor Name 10/18/2021 1 [employer] [id number] Sarah Latourelle [id number] Ankur Latourelle 01/03/2022 1 [employer] [id number] Sarah Latourelle [id number] Ankur Latourelle 03/28/2022 1 [employer] [id number] Sarah Latourelle [id number] Ankur Latourelle 06/16/2022 1 [employer] [id number] Sarah Latourelle [id number] Ankur Latourelle 12/11/2022 1 [employer] [place] [id number] Sarah Latourelle [id number] Ankur Latourelle Notes Date Note Type Note Provider Name and Address Organization Details Recorded Time 10/18/2021 text/html She is here for a 6 day history of a tender lump under the right areolae. She had the nipples pierced 4 months ago. Susan Cisneros MD [address] [facility],[address], [place], [address], [place] - [facility], 10/18/2021 09:49:28 12/11/2022 text/html She is here for annual exam, had her last depo provera injection 06/16/22, has not resumed menses yet, is using condoms. Same partner for 18 months, they do not desire fertility at this time. she is considering beginning the OCP. Note from 2020: She is here for annual exam. She had been on the OCP but didn't like taking a pill every day so she switched to the patch, however she didn't like the patch because the glue smelled bad and stuck to her skin, so she switched back to the 20 mcg pill. However she had been off the patch for a month before starting the pil and noticed that off medication she felt much happier and less anxious, but when she restarted the 20 mcg pill, I went back to the way I had been. She would like a lower dose pill than the 20 mcg, as she cannot tolerate the 20 mcg pill due to emotional side effects. She had a shelter partner for years, they broke up, now she has a new partner for the past month or two. Susan Cisneros MD [address] [facility],[address], [place], [address], [place] - [facility], 12/11/2022 13:08:28 OBGyn Episode No OBEpisode recorded.
== END 2024-12-15 10:20 | disposition home or self-care (01) ==
PROVIDERS: PCP Internal Medicine; Visit Provider Internal Medicine
DX: Z00.00 Encounter for general adult medical examination without abnormal findings (principal); H92.03 Otalgia, bilateral; Z23 Encounter for immunization

== ENCOUNTER → 2024-12-15 09:25 | Outpatient (BNVA) | payer OTHER, SELFPAY | PROVIDERS: PCP Internal Medicine; Visit Provider Internal Medicine | DX: Z00.00 Encounter for general adult medical examination without abnormal findings (principal); Z23 Encounter for immunization; H92.03 Otalgia, bilateral; F41.9 Anxiety disorder, unspecified; F32.A Depression, unspecified; Z79.899 Other long term (current) drug therapy | CPT/HCPCS: 90471; 90715; 96127 ==

== ENCOUNTER 2025-05-03 13:55 | Outpatient (REF) | payer OTHER, SELFPAY ==
--- NOTE | ~2025-05-03 | MR_ITS ---
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 No acute fracture or pathologic bone lesion. Cauda equina and conus medullaris within normal limits. There is disc degeneration at the L3-4 level with disc space narrowing and a mild diffuse annular bulge. There is no neural foraminal narrowing. Paraspinous musculature intact. Minimal annular bulges are seen at the L2-3 and L4-5 levels. The rest of the disc spaces are unremarkable. The rest of the foramina are patent. IMPRESSION: Degenerating disc L3-4 with mild diffuse annular bulge. Minimal bulges are seen at the L2-3 and L4-5 levels. There is no neural foraminal narrowing noted. This document has been electronically signed by: Oscar Rose MD on 05/05/2025 06:26:15
--- NOTE | ~2025-05-03 | MR_ITS ---
CLINICAL HISTORY: spondylosis wo myelopathy Exam: MRI of the thoracic spine without intravenous contrast. Comparison: None. Findings: Mild convex right midthoracic curvature. Alignment is anatomic on the sagittal images. No fracture or concerning bone marrow signal alteration is identified. No cord signal abnormality. Disc height and hydration status is appropriate throughout. There are few minor areas of posterior osteophytic ridging within the midthoracic spine. Minimal to mild facet joint degenerative change, primarily along the concave portion of the curvature. Central canal is patent throughout. Impression: Spinal curvature as above with minimal to mild degenerative change. No fracture or cord signal abnormality identified. This document has been electronically signed by: Donald Hurd MD on 05/04/2025 08:56:22
== END 2025-05-03 13:56 | disposition home or self-care (01) ==
LOC: HO.MRI 13:55
PROVIDERS: Visit Provider Student in an Organized Health Care Education/Training Program
DX: M47.814 Spondylosis without myelopathy or radiculopathy, thoracic region (principal); M47.816 Spondylosis without myelopathy or radiculopathy, lumbar region
CPT/HCPCS: 72146; 72148

== ENCOUNTER → 2025-05-03 14:07 | Outpatient (BNV) | payer OTHER, SELFPAY | PROVIDERS: Visit Provider Radiology Diagnostic Radiology | DX: M54.2 Cervicalgia (principal) | CPT/HCPCS: 72146 ==

== ENCOUNTER 2025-08-24 09:21 | Outpatient (AMB) | payer OTHER, SELFPAY ==
[2025-08-24 09:36] VITALS: BP 110/78; PULSE 65; O2SAT 95; BMI 23.3
--- NOTE | 2025-08-24 09:36 | A.OFFPC_ITS ---
Vital Signs 08/24/25 09:36 Height 5 ft 2 in Weight 127 lb 6 oz BMI 23.3 BP 110/78 Blood Pressure Location Lt brachial Position Sitting Pulse 65 Pulse Source Pulse Oximeter Pulse Oximetry (%) 95 Oxygen Delivery Method Room Air Intake Visit Reasons: Severe headaches Global Marketing Manager Required: No Accompanied by: Self / Same As Patient Allergies Seasonal Allergies Allergy (Mild, Verified 08/24/25 09:36) itchy eyes, runny nose Medication List - Last Reconciled 08/24/25 by Shayne Swartz MD levonorgestrel-ethinyl estrad 0.1-20 mg-mcg (Vienva) 1 tab PO DAILY sertraline (Zoloft) 25 mg PO DAILY 90 days sertraline 100 mg PO DAILY 90 days Tobacco use date assessed: 08/24/25 Dental Screening Dental Screen Date: 08/24/25 Did you have a dental visit in the last 12 months?: Yes Did you have a dental problem in the last 6 months where you did not have access to dental care?: No Was dental information given to patient?: Patient has dentist HPI HPI Comments History of Present Illness0 Details The patient is a 24-year-old female presenting with headaches and associated symptoms. The patient reports experiencing severe headaches, described as cluster headaches, which have been occurring approximately four to five times a month for the past six months. These headaches often originate from neck pain and radiate upwards, causing significant discomfort. The patient has been managing the headaches with qpdu-pyr-gfkavdg medications such as Tylenol and ibuprofen, which provide temporary relief. Recently, the patient experienced an episode of urinary incontinence during sleep, which was a first-time occurrence and has caused concern about potential neurological issues. Additionally, the patient reports episodes of dizziness and heart palpitations, which occur randomly during daily activities. The patient also experiences gastrointestinal symptoms, including constipation and bloating, which are persistent and may contribute to her overall discomfort. She has attempted dietary modifications, such as reducing gluten intake, without noticeable improvement. [facility] Medical History Screening for hypothyroidism Urinary frequency Plantar warts Anxiety Surgical History History of removal of skin mole Family History Mother Thyroid cancer Father Diabetes Social History Housing: Apartment Alcohol intake: never Patient Tobacco Use Status: Never used Tobacco e-Cigarette/Vaping Use: Former Use Second Hand Smoke Exposure: No service: No Current occupational status: employed Current occupational exposures/hazards: No Cognitive needs: No Hearing needs: No Vision needs: Yes (glasses) Female Reproductive History Menstrual Age of Menarche: 13 Questionnaire Thrive Questionnaire Date Thrive assessed: 12/08/24 I am a: Patient What is your living situation today?: I have a steady place to live Within the past 12 months, did the food you bought not last and you didn't have the money to get more?: Never true Within the past 12 months, did you worry whether your food would run out before you got money to buy more?: Never true Do you have trouble paying for medicines?: I choose not to answer this question Do you have trouble getting transportation to medical appointments?: No Do you have trouble paying your heating and electricity bill?: I choose not to answer this question Do you have trouble taking care of your child, family member or friend?: I choose not to answer this question Do you have trouble with day-to-day activities such as bathing, preparing meals, shopping, managing finances, etc.?: No Are you currently unemployed and looking for a job?: No Are you interested in more education?: I choose not to answer this question Please select the resources that you would like help with: None Currently or been in a relationship where the following occur: No concerns reported THRIVE Score: 0 AUDIT C Alcohol Use Questionnaire (AUDIT-C) 1. How often do you have a drink containing alcohol?: Never 3. How often do you have six or more drinks on one occasion?: Never Total Score: 0 MEG-7 AMB Questionnaire MEG-7 Date MEG - 7 assessed: 12/15/24 Source: Developed by Drs. Ivan Dutton, Jennifer Delvalle, Alexey Early and colleagues, with an educational mary from [employer] Review of Systems Const Details: Positives besides what was mentioned in HPI are in BOLD Constitutional: No Weight Change, No Fever, No Chills, No Night Sweats, No Fatigue, No Malaise ENT/Mouth: No Hearing Changes, No Ear Pain, No Nasal Congestion, No Sinus Pain, No Hoarseness, No sore throat, No Rhinorrhea, No Swallowing Difficulty Eyes: No Eye Pain, No Swelling, No Redness, No Foreign Body, No Discharge, No Vision Changes Cardiovascular: No Chest Pain, No SOB, No PND, No Dyspnea on Exertion, No Orthopnea, No Claudication, No Edema, No Palpitations Respiratory: No Cough, No Sputum, No Wheezing, No Smoke Exposure, No Dyspnea Gastrointestinal: No Nausea, No Vomiting, No Diarrhea, No Constipation, No Pain, No Heartburn, No Anorexia, No Dysphagia, No Hematochezia, No Melena, No Flatulence, No Jaundice Genitourinary: No Dysmenorrhea, No DUB, No Dyspareunia, No Dysuria, No Urinary Frequency, No Hematuria, No Urinary Incontinence, No Urgency, No Flank Pain, No Urinary Flow Changes, No Hesitancy Musculoskeletal: No Arthralgias, No Myalgias, No Joint Swelling, No Joint Stiffness, No Back Pain, No Neck Pain, No Injury History Skin: No Skin Lesions, No Pruritis, No Hair Changes, No Breast/Skin Changes, No Nipple Discharge Neuro: No Weakness, No Numbness, No Paresthesias, No Loss of Consciousness, No Syncope, No Dizziness, No Headache, No Coordination Changes, No Recent Falls Psych: No Anxiety/Panic, No Depression, No Insomnia, No Personality Changes, No Delusions, No Rumination, No SI/HI/AH/VH, No Social Issues, No Memory Changes, No Violence/Abuse Hx., No Eating Concerns Heme/Lymph: No Bruising, No Bleeding, No Transfusions History, No Lymphadenopathy Endocrine: No Polyuria, No Polydipsia, No Temperature Intolerance Physical exam (Primary Care) Vital Signs: Last Vital Signs Pulse 65 08/24/25 09:36 BP 110/78 08/24/25 09:36 Pulse Ox 95 08/24/25 09:36 Oxygen Delivery Method Room Air 08/24/25 09:36 BMI result Body Mass Index 23.3 Tobacco/Smoking Status: Tobacco use Status Tobacco use date assessed 08/24/25 08/24/25 09:41 Patient Tobacco Use Status Never used Tobacco 08/24/25 09:41 e-Cigarette/Vaping Use Former Use 08/24/25 09:41 Thrive Assessment: Date of Thrive Assessment Date Thrive assessed 12/08/24 08/24/25 09:41 Currently or been in a relationship where the following occur: No concerns reported Const Other: Pertinent findings are in BOLD GENERAL APPEARANCE NAD, activity normal for age, well developed/ well nourished, no cyanosis, pallor, or diaphoresis. EYES lids/conjunctiva normal. EARS/NOSE/THROAT Mucous membranes moist, nares normal, lips/teeth normal uvula midline without oral pharyngeal erythema, exudate or swelling TMs normal bilaterally. No lymphangitis/lymphedema. HEAD/NECK normocephalic atraumatic, no facial trauma, neck is supple. RESPIRATORY respiratory effort normal, speaks in full sentences, no tripod position, no accessory muscle use. Lungs clear to auscultation without rhonchi, wheezes, rales CARDIAC Regular rate and rhythm, no edema. ABDOMINAL Soft, ND/NT. No evidence of fluid wave. No pulsatile masses on exam, rebound tenderness, Chandler sign or pain over Mcburney's point. MUSCLES/EXTREMITIES No abnormal range of motion, no swelling. SKIN Warm, pink and dry. No rashes, dermatoses, petechiae or lesions. NEUROLOGICAL Speech is clear and appropriate. Normal level of consciousness. Gait and coordination are normal. 5/5 strength in all extremities. PSYCH Normal mood and affect. Judgement/competence is appropriate Coding Level of Care Code Est Pt Level 4 (27356) Diagnoses Headache R51.9 Chronic constipation K59.09 Urinary incontinence R32 Time Spent (min) 30 Assessment & Plan Assessment & Plan (1) Headache: Code(s): R51.9 - Headache, unspecified Category: Medical Plan: - Referral to a neurologist for further evaluation of headaches and associated symptoms. - Continue symptomatic treatment with Tylenol and ibuprofen as needed. - Consider switching OCP to IUD. 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 (2) Chronic constipation: Comment: Chronic constipation since she can remember Will give trial of Linzess Code(s): K59.09 - Other constipation Category: Medical Plan: - Dietary modifications recommended, including reducing dairy intake to alleviate constipation and associated symptoms. (3) Urinary incontinence: Code(s): R32 - Unspecified urinary incontinence Category: Medical Plan: One episode only. - Monitor for recurrence of urinary incontinence and discuss with PCP if symptoms persist. Plan I discussed with the patient the potential causes of her symptoms, including the possibility of her oral contraceptive contributing to her headaches. I recommended a referral to a neurologist for further evaluation of her headaches and associated symptoms, including the episode of urinary incontinence. We also discussed dietary modifications to address her gastrointestinal symptoms, specifically reducing dairy intake. Orders: Referrals Neurology Referral R51.9 - Headache, unspecified Medications: Refilled sertraline 100 mg PO DAILY 90 days 90 tabs 0RF sertraline 100 mg PO DAILY 90 tabs 3RF 90 days Discontinued sertraline (Zoloft) Discontinued Reason: Patient no longer taking 25 mg PO DAILY 90 days 90 tabs 1RF
--- OUTSIDE RECORDS SUMMARY | 2025-08-24 10:33 | XMS_ITS | Clinical Summary ---
Author Organization [facility] Address [address] [place] [address] Phone Care Team Providers Care Coal Pipeline Operator Name Role Phone Unavailable Primary Care Provider Unavailabl e Immunizations Immunization Administration Dates Next Due DTaP 04/27/2006, 3,05/02/2001,02/26,2000 [...] AM EDT Pulse - - Temperature 36.8 C (98.2 F) 02/23/2016 12:00 AM EDT Respiratory Rate - - Oxygen Saturation - [...] 02/09/2003, Additional history exists Influenza Vaccines (#1) 2025 07/20/20 15, 11/26/2013, 11/27/2012 COVID-19 Vaccine ( - 2024- season) 2025 Pneumococcal Vaccine Aged Out 05/02/2001, 02/26/2001, 2000 [...] Men B Vaccine Aged Out No longer elig ible based on patient's age to complete this topic
--- OUTSIDE RECORDS SUMMARY | 2025-08-24 10:34 | XMS_ITS | Encounter Summary ---
Author Organization [facility] Address [address] [place] [address] Phone Care Team Providers Care Excellence Consultant Name Role Phone Griselda Myers MD Primary Care Provider [phone] Encounter Details Date Type Department Care Team (Late st Contact Info) Description 12/10/2009 Documentation [facility] Family Medicine [address] [place], [place] [id number] Family Medicine, Physician [address] [place] [address] Social History Tobacco Use Types Packs/Day Years [...] on filedocumented in this encounter Care Teams Excellence Consultant Relationship Specialty Start Date End Date [facility]isel[facility] [address] PCP - General 03/27/18 09/29/24 documented as of this encounter
--- OUTSIDE RECORDS SUMMARY | 2025-08-24 10:34 | XMS_ITS | Encounter Summary ---
Author Organization [facility] Address [address] [place] [address] Phone Care Team Providers Care Cryptographer Name Role Phone Griselda Myers MD Primary Care Provider [phone] Encounter Details Date Type Department Care Team (Late st Contact Info) Description 04/07/2018 Conversion Encounter [facility] [address] [place] [address] Griselda Myers MD [address] [place] [address] Social History Tobacco Use Types Packs/Day Years [...] on filedocumented in this encounter Care Teams Cryptographer Relationship Specialty Start Date End Date Griselda Myers MD [address] [place] [address] PCP - General 03/27/18 09/29/24 documented as of this encounter
== END 2025-08-24 10:10 | disposition home or self-care (01) ==
LOC: HO.HMCH 09:22
PROVIDERS: Visit Provider Internal Medicine
DX: R51.9 Headache, unspecified (principal); K59.09 Other constipation; R32 Unspecified urinary incontinence

== ENCOUNTER 2025-09-21 09:50 | Outpatient (AMB) | payer OTHER, SELFPAY ==
--- NOTE | 2025-09-21 11:04 | A.OFFPSYCH_ITS ---
Intake Intake Visit Reasons: consultation Acds Block 1 Operator Required: No Allergies Seasonal Allergies Allergy (Mild, Verified 08/24/25 09:36) itchy eyes, runny nose Medication List - Last Reconciled 09/21/25 by Milla Ponce APRN levonorgestrel-ethinyl estrad 0.1-20 mg-mcg (Vienva) 1 tab PO DAILY sertraline 100 mg PO DAILY 90 days HPI- Psychiatric Chief Complaint: consultation HPI Narrative: Ankur is a 24 year old single woman who lives with her parents referred by her PCP to evaluate medications and treatments for anxiety/panic. Pt comes in today reporting her goal is to taper off the zoloft. She has already tapered herself down to 50mg daily. She tapered the zoloft from 125mg by 12.5mg every month or tow. She is tolerating the taper well, She reports she does not like the side effects of SSRIs and does not want to be on one. She reports emotional blunting and low sex drive. She reports even if she wants to cry about something sad like watching a movie she can not cry. She reports no depression and very little daily anxiety; she reports she has had anxiety and panic since she was approximately 8 years old. she was put on zoloft at that time; she has been on it since then. the highest dose was 125mg daily. She has also gone to therapy off and on since she was a child. she was in therapy from age [age] yrs old and more recently she worked with a therapist for 5 months and saw her weekly; she realized through therapy and her own reflection that she had a phobia of vomiting; she relaxed that she did not have panic or anxiety unless triggered by some experience that triggered a fear of vomiting such as someone else being sick, her being nauseous or having stomach cramps. She reports the last time this hapened was about 3 weeks ago she woke in the night with stomach discomfort and she became very anxious, sweating, hot, and her whole body began to keiko. She reports her anxiety attacks are very physical and dont really have emotional or worry aspect to it. She reports she feels her heart beating fast and hard out of the blue, her whole body shakes violently. When asked what it looked like that her body shook violently she said its not just a small hand tremor its her whole body shaking and if you touched her you could feel her shaking. She reports she thinks she has a vasovagal response where she feels hot, starts to sweat, heart races, body tremors, and she has to sit down. she denies ever losing consciousness or having syncope. She reports onset of cluster headaches recntly and headaches that have waken her up in the night. she has a neurology appt in December to evaluate. She also has hx of severe scoliosis which she feels may contribute to heaches and GI issues. She reports chronic constipation, going without a bowel movement for upto 3-4 days and when she does feel the urge that can be a trigger to vagal response that can last up to over an hour. Pt reports no tobacco use, No caffeine use, Occasional THC use 2 x a month, ETOH 1 drink 1 x a month or less, no other drug use. Pts PHQ9= 3 and GAD7=3. pt reports she has a low stress job that she enjoys. she lives with parents and feels supported; she has a supportive BF and friends. she reports she eats 3 meals a day and snakcs. She walks for exercise but does have the goal of developing an indoor exercise routine for cold weather She denies any period of bushra; she denies SI ro HI; she denies hx or current self harm. Past Psychiatric History: outpt treatment since age 8 with meds and therapy for panic and separation anxiety Subjective Subjective Medication Compliance: Yes Side effects from medications: No Review of Systems Medical Review of Systems: unchanged Mental Status Exam Mental Status Exam Patient Appearance: Well Grooomed and Appropriate Patient Orientation: Person, Place, Time and Situation Level of Consciousness: Awake, Appropriate and Alert Patient Behavior: Appropriate, Talkative, Cooperative, Anxious and Good Eye Contact Mood Description: Appropriate and Cheerful Affect Description: Appropriate and Cheerful Patient Cognition Impaired: No Ability to Follow Directions: Good Speech Pattern: Clear, Appropriate and Coherent Memory Description: Intact Hallucinations: None Delusions: Not Present Thought Process: Intact and Goal Oriented Thought Content: positive for Intact and positive for Goal Oriented Judgement: Good Assessment and Plan Assessment & Plan (1) Tachycardia, paroxysmal: Status: Acute Code(s): I47.9 - Paroxysmal tachycardia, unspecified (2) Tremors of nervous system: Status: Acute Code(s): R25.1 - Tremor, unspecified (3) 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 - Other specified phobia Plan differential dx are: MEG with panic Panic Disorder OCD partial complex seizure hypoglycemia taper zoloft by 12.5 mg every 2-4 weeks as tolerated alprazolam prn for panic symptoms start magnesium glycinate 100-200mg up to bid max 400mg in a 24 hour period stay hydrated; consider liquid IV hydration multiplier 1/2 pk 1-2 times a day if tend to over hydrate have a small snack at onset of anxiety if able EEG to rule out partial complex seizure EKG to rue out cardiac conduction problem and in preparation for possible propranolol or another PRN agent Medications: New alprazolam 0.25 mg PO DAILY PRN 30 tabs 0RF panic Orders: Orders ECG 12 lead EKG Today I47.9 - Paroxysmal tachycardia, unspecified EEG Routine Today R25.1 - Tremor, unspecified Counseling and coordination of Care Pt. Self Management counseling: Exercise, Maintenance-social rhythm, Mod caffeine/ETOH intake, Nutrition education and improvement, Sleep hygiene, General coping skills and Problem solving Medication management counseling: Effectiveness, Side effects, Dosing range, Duration, Drug interaction and Adherence Diagnosis and Prognosis Counseling: Accuracy of diagnosis, Prognosis over time, Impact of diagnosis on life functions, Impact of family relationship, Problematic behaviors secondary to diagnosis and Adequacy of current interventions Details: I spent 90 minutes reviewing the record, seeing the patient and documenting in the medical record. Counseling provided to the patient/caregiver as outlined below. Addressed patient/caregiver concerns regarding current medication regime including effective adherence. Addressed patient/caregiver concerns regarding diagnosis and prognosis including accuracy of diagnosis, prognosis over time, impact of diagnosis. Addressed patient/caregiver concerns regarding impact of recent stressors. [facility] Medical History Screening for hypothyroidism Urinary frequency Plantar warts Anxiety Surgical History History of removal of skin mole Family History Mother Thyroid cancer Father Diabetes Social History Housing: Apartment Alcohol intake: never Patient Tobacco Use Status: Never used Tobacco e-Cigarette/Vaping Use: Former Use Second Hand Smoke Exposure: No service: No Current occupational status: employed Current occupational exposures/hazards: No Cognitive needs: No Hearing needs: No Vision needs: Yes (glasses) Social History: lives with parents; has older brother (4yrs older) works [employer]. Has supportive BF and friends Substance History: Pt reports no tobacco use, No caffeine use, Occasional THC use 2 x a month, ETOH 1 drink 1 x a month or less, no other drug use. Trauma History: none Coding Level of Care Code Psych Diag Eval w/Med ([id number]) Diagnoses Tachycardia, paroxysmal I47.9 Tremors of nervous system R25.1 Specific phobia F40.298
--- OUTSIDE RECORDS SUMMARY | 2025-09-21 11:24 | XMS_ITS | Clinical Summary ---
Author Organization [facility] Address [address] [place] [id number] Phone Care Team Providers Care Vp Of Technology Name Role Phone Unavailable Primary Care Provider [...]
--- OUTSIDE RECORDS SUMMARY | 2025-09-21 11:24 | XMS_ITS | Encounter Summary ---
Author Organization [facility] Address [address] [place] [phone] Phone Care Team Providers Care Junior Manufacturing Engineer Name Role Phone Griselda Myers MD Primary Care Provider [phone] Encounter Details Date Type Department Care Team (Late st Contact Info) Description 12/10/2009 Documentation [facility] Family Medicine [address] [place], [place] [id number] Family Medicine, Physician [address] [place] [address] Social History Tobacco Use Types Packs/Day Years [...] on filedocumented in this encounter Care Teams Junior Manufacturing Engineer Relationship Specialty Start Date End Date [facility]isel[facility] [address] P[facility] - General 03/27/18 09/29/24 documented as of this encounter
--- OUTSIDE RECORDS SUMMARY | 2025-09-21 11:24 | XMS_ITS | Data Portability ---
Author Organization [place] - [facility],, SUSAN CISNEROS MD Address [address] [facility] [address] [facility] [place] [address] Care Team Providers Care [employer] Agent Name Role Phone [facility] Care Provider Assessment No assessment recorded. Plan of Treatment Reminders Order Date Submit Date Provider Last Modified By Organization Details Last Modified Time Details Appointments None recorded. Lab pap test, thinprep, cervical 2022 023 [email or web address] [facility] (Centralized Electronic Ordering - All Locations), Patient Can Go To The Location Of Their Choice, [facility] 3 07:35:56 chlamydia sp, culture, unspecifie d specimen 2022 023 [email or web address] [facility] (Centralized Electronic Ordering - All Locations), Patient Can Go To The Location Of Their Choice, [facility] 3 07:35:57 NG DNA, PCR, genital 2022 023 [email or web address] [facility] (Centralized Electronic Ordering - All Locations), Patient Can Go To The Location Of Their Choice, [id number] 3 07:35:57 Referral None recorded. Procedures None recorded. Surgeries None recorded. Imaging None recorded. Medication Orders Aviane 0.1 mg-20 mcg tablet 2022 023 MARGARET [id number], [place], [address], 3 13:06:06 Depo-Prove ra 150 mg/mL intramuscu lar suspension 2021 022 [email or web address] 1 [id number], [address] [place], [address], 10:35:23 Depo-Prove ra 150 mg/mL intramuscu lar suspension 2021 022 [email or web address] 1 [id number], [address] [place], [address], 10:28:17 Depo-Prove ra 150 mg/mL intramuscu lar suspension 2021 022 [email or web address] 1 [id number], [address] [place], [address], 10:21:11 azithromyc in 250 mg tablet 2020 021 [email or web address] [id number], [address] [place], [address], 09:54:07 Patient TargetsNo targets recorded. Patient Instructions Encounter Date Encounter Id Patient Instructions Last Modified By Organization Details Last Modified Time 10/18/2021 [id number] She is here for a 6 day [...] minutes edd Not available 10/18/2021 09:20:45 01/03/2022 [id number] shot for control: care instructions Not available 01/03/2022 10:21:11 03/28/2022 [id number] shot for control: care instructions [email or web address] Not available 03/28/2022 10:28:15 06/16/2022 [id number] shot for control: care instructions Not available 06/16/2022 10:35:23 12/11/2022 [id number] learning about healthy weight [email or web address] Not available 12/11/2022 13:05:46 She is her [...] to emotional side effects. She had a jail partner for years, they broke up, now [...] DO Not Attach Compendium, Do Not Delete/merge, [id number] 10/07/2021 10:52:58 12/11/19 23 12/12/2022 THIN PREP [...] C. Trach omati s Not Available [facility] (Centralized Electronic Ordering - All Locations) Patient Can Go To The Location Of Their Choice, [id number] 12/12/2022 13:37:09 12/11/19 23 12/12/2022 THIN PREP [...] have not been evalu ated in child montse. The Aptim a Combo 2 assay is [...] neede d. Conta ct phone numbe r [phone]. Thera peuti c failu re or succe ss canno t be deter mined with the Aptim a Combo 2 assay since nucle ic acid may persi st follo wing appro priat e antim icrob ial thera py. The [facility] Disea se Contr ol and Preve ntion ([facility]) recom mends confi rmato ry retes ting using cultu re or a diffe rent nucle ic acid ampli ficat ion test when posit ramana resul ts occur , if indic ated. Not Available [facility] (Centralized Electronic Ordering - All Locations) Patient Can Go To The Location Of Their Choice, [id number] 12/12/2022 13:37:09 12/11/19 23 12/11/2022 [facility] CYTOL OGY results Paolae nt Name: BHARGAV PRO nt : 1999 (Age: 22) Lab Acces dilip #: [id number] Colle ction Date: 2022 Acces dilip Date: 2022 Sign Out Date: 2022 Tissu e Sourc e: 1: THINP REP TAXICAB COORDINATOR PAP TEST, CERVI MARTI: Final Diagn osis: [...] Syste m with peter fleming or christal khoury Perfo rmed at [facility] ate Refer ence [facility] Cytol o[facility], [address] [place] Clini marti Histo ry (othe r): Z01.4 19, Z11.3 , ROUTI NE scree n, LPS 08/08 negat ramana Phone #: [phone], On-Ca ll Patho logis t: [id number] Not Available [facility] (Centralized Electronic Ordering - All Locations) Patient Can Go To The Location Of Their Choice, [id number] 12/14/2022 16:07:44 Result Notes None recorded. Problems Name Problem SNOMED Code Status Onset Date Resolution Date Notes Provider Name and Address Organization Details Recorded Time Genital Molluscum contagiosum 598336337 Active 2017 Susan Cisneros MD [address], [place], [address], [place] [facility], 8 14:52:40 Candidal vulvovaginitis 20577178 Active 2017 Susan Cisneros MD [address], [place], [address], [place] [facility], 8 15:19:47 Candidiasis of skin 46574996 Active 2017 Susan Cisneros MD [address], [place], [address], [place] [facility], 8 15:19:57 Problem Notes None recorded. Procedures Surgical History Date Name Laterality Status Provider Name and Address Organization Details Recorded Time 0 Colposcopy completed Susan Cisneros MD [address], [place], [address], [place] [facility], 11/20/2019 10:05:33 8 Destroy condyloma, extensive completed Susan Cisneros MD [address], [place], [address], [place] [facility], 05/28/2018 12:13:41 1 Other completed Shira Ronak [place] - [facility], 05/04/2016 14:24:28 Imaging Results None recorded. Procedure [...] Not Available Not Available No t Available Lo Loestrin Fe 1 mg-10 mcg (24)/10 mcg (2) tablet Take 1 tablet every day by oral route. 10/07 completed Not Available Not Available Not Available Linzess 145 mcg capsule TAKE 1 [...] index (BMI) Body weight Heart rate Systolic And Diastolic Provider Name and Address Organization Details Last Updated DateTime 12/11/2022 162.56 cm 20.1 kg/m2 59541.03 g 91 /min 115/67 mm[Hg] Shira Simons [place] - [facility], 12/11/2022 10:23:11 Date Recorded Body height Body mass index (BMI) Body weight Body temperature Heart rate Systolic And Diastolic Provider Name and Address Organization Details Last Updated DateTime 2 162.56 cm 19.2 kg/m2 98366.3 5 g 97.4 [degF] 74 /min 109/69 mm[Hg] Shira Stallings in [facility], 2 09:54:35 Date Recorded Body height Body mass index (BMI) Body weight Heart rate Body temperature Systolic And Diastolic Provider Name and Address Organization Details Last Updated DateTime 2 162.56 cm 19.2 kg/m2 21338.3 5 g 87 /min 97.2 [degF] 107/66 mm[Hg] Sarah Stallings in [facility], 2 09:51:07 Date Recorded Body height Body mass index (BMI) Body weight Heart rate Systolic And Diastolic Provider Name and Address Organization Details Last Updated DateTime 06/16/2022 162.56 cm 19.7 kg/m2 31406.12 g 67 /min 110/71 mm[Hg] Sarah Stallings in [facility], 06/16/2022 09:58:15 Date Recorded Body height Body mass index (BMI) [Percentile] Per age and sex Body mass index (BMI) Body weight Body temperature Heart rate Systolic And Diastolic Provider Name and Address Organization Details Last Updated DateTime 1 162.56 cm 18 % 19.3 kg/m2 28186.5 g 97.4 [degF] 78 /min 105/63 mm[Hg] Shira Stallings in [facility], 1 09:00:11 Social History Question Answer Notes LastModified by Organizat ion Details LastModified Time Tobacco Smoking Status Never Smoker [place] in [facility], 05/04/2016 14:22:17 How Many Years Have You Consumed Alcohol? 1 Information not available 08/08/2021 What Is Your Level Of Caffeine Consumption? None Information not available 05/20/2021 In The 14 Days Before Symptom Onset, Have You Had Close Contact With A Laboratory-confirm ed COVID-19 While That Case Was Ill? No Information n ot available 08/08/2021 In The 14 Days Before Symptom Onset, Have You Had Close Contact With A Person Who Is Under Investigation For COVID-19 While That Person Was Ill? No Information not available 08/08/2021 Have You Been To An Area Known To Be High Risk For COVID-19? No Information not available 08/08/2021 Diabetes No Information no t available 08/06/2020 What Type Of Diet Are You Following? REGULAR Information n ot available 05/04/2016 Which Illicit Or Recreational Drugs Have You Used? No Information not available 05/04/2016 Do You Reside In Or Have You Traveled To An Area Where Ebola Virus Transmission Is Active? No Information not available 07/03/2017 Education 12 Information no t available 05/28/2018 What Is The Highest Grade Or Level Of School You Have Completed Or The Highest Degree You Have Received? SB77878-1 Information not available 08/08/2021 Who Is Your [...] Which Gender Do You Self-identify? Female Information n ot available 05/04/2016 Marital Status Single Informatio n not available 05/04/2016 What Was The Date Of Your Most Recent Tobacco Screening? 12/11/2022 Information not available 12/11/2022 What Is Your Relationship Status? Single Information not available 08/08/2021 Seat Belts Used Routinely Yes Information not available 11/20/2019 Are You Sexually Active? Yes Information not available 07/03/2017 How Much Tobacco Do You Smoke? No Information not available 08/17/2017 General Stress Level Medium Information not available 01/21/2019 How Many Years Have You Smoked Tobacco? 0 Information not available 08/17/2017 Have You Recently (within The Last 12 Weeks, Or During A Current ) Traveled To Or Lived In A Zika-affected Area? No Information not available 05/04/2016 How Many Days In The Past Year Have You Consumed 4 Or More Drinks? 0 Information not available 08/08/2021 Sex: Female Functional Status Question Answer Note LastModified by Organizat ion Details LastModified Time Do you use any illicit or recreational drugs? No Information not available 08/08/2021 Do you or have you ever used any other forms of tobacco or nicotine? No Information not available 08/08/2021 What is your level of alcohol consumption? Occasional Information not available 08/08/2021 Do you or have you ever used smokeless tobacco? Never used smokeless tobacco Information not available 11/20/2019 Are you currently employed? Yes Information not available 08/08/2021 What is your occupation? [employer] Information not available 12/11/2022 Do you or have you ever used e-cigarettes or vape? Never used electronic cigarettes Information not available 11/20/2019 What is your exercise level? Moderate Information not available 07/03/2017 Mental Status Question Answer Note LastModified by Organization D etails LastModified Time Do you feel stressed (tense, restless, nervous, or anxious, or unable to sleep at night)? HC1261-1 Information not available 08/08/2021 Family History Relationship Description Onset Age of [...] quadrivalent, preservative 9 completed [place] Mortensen in [facility], 11/20/2019 09:24:02 COVID-19, mRNA, LNP-S, PF, 30 mcg/0.3 mL dose 1 completed [place] Bowers in [facility], 03/28/2022 09:51:58 COVID-19, mRNA, LNP-S, PF, 30 mcg/0.3 mL dose 1 completed [place] Bowers in [facility], 09/12/2021 13:44:43 influenza, unspecified formulation 2 completed [place] in [facility], 12/11/2022 10:24:38 Past Encounters Encounter ID Performer Location Encounter Start Date Encounter Closed Date Diagnosis/Indication Diagnosis SNOMED-CT Code Diagnosis ICD10 Code Diagnosis IMO Codes Diagnosis Note [id number] MD SUSAN Paz MD [address] [place] [address] [place] [address] 05/04/2016 14:07:39 05/04/2016 15:06:52 Specialized medical examination 89037739 Z01.419 Venereal d isease screening 809188334 Z11.3 [id number] MD SUSAN Paz MD [address] [place] [address], [address] [place] [address] 07/03/2017 13:49:36 07/03/2017 15:03:04 Specialized medical examination 81700067 Z01.419 Venereal d isease screening 889209451 Z11.3 [id number] MD SUSAN Paz MD [address] [place] [address] [place] [address] 08/17/2017 13:19:02 08/17/2017 15:52:15 Candidal vulvovaginitis 74301998 B37.3 [id number] MD SUSAN Paz MD [address] [place] [address],[facility] [place] [address] 09/03/2017 14:51:39 09/03/2017 15:56:42 Candidal vulvovaginitis 42483330 B37.3 Ulceration of vulva 6864 0004 N76.6 Herpetic u lceration of vulva 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 A60.04 A60.09 [id number] MD SUSAN Paz MD [address] [place] [address],[facility] [place] [address] 09/13/2017 10:43:06 09/13/2017 12:58:54 Venereal disease screening 569056335 Z11.3 Candidal vulvovaginitis 20654736 B37.3 [id number] MD SUSAN Paz MD [address] [place] [address],[address] [address] 10/18/2017 13:16:22 10/18/2017 16:05:21 Candidal vulvovaginitis 47452197 B37.3 Venereal d isease screening 293383269 Z11.3 Vaginitis 87417053 N76.0 [id number] MD SUSAN Paz MD [address] [place] [address], [place] [address] 12/03/2017 11:02:43 12/03/2017 12:12:38 Vulvitis 97381456 N76.2 B96.89 Candidal vulvovaginitis 92496477 B37.3 [id number] MD SUSAN Paz MD [address] [place] [address],[facility] [place] [address] 12/24/2017 09:31:35 12/24/2017 11:57:11 Candidal vulvovaginitis 26412423 B37.3 Molluscum contagiosum infection 09675486 B08.1 [id number] MD SUSAN Paz MD [address] [place] [address],[facility] [place] [address] 02/26/2018 14:13:23 02/26/2018 16:17:18 Genital Molluscum contagiosum 804137516 B08.1 [id number] MD SUSAN Paz MD [address] [place] [address],[facility] [place] [address] 04/02/2018 14:55:29 04/02/2018 15:55:16 Genital Molluscum contagiosum 322003086 B08.1 Vulvitis 42357102 N76.2 B96.89 [id number] MD SUSAN Paz MD [address] [place] [address],[facility] [place] [address] 05/28/2018 10:37:24 05/28/2018 14:31:31 Genital Molluscum contagiosum 237057776 B08.1 [id number] MD SUSAN Paz MD [address] [place] [address],[address] [address] 07/19/2018 13:38:18 07/19/2018 14:21:31 Specialized medical examination 96659765 Z01.419 Venereal d isease screening 867141760 Z11.3 Genital Mo lluscum contagiosum 110173492 B08.1 [id number] MD SUSAN Paz MD [address] [place] [address],[facility] [place] [address] 10/15/2018 14:57:20 10/15/2018 15:45:57 Atypical squamous cells of undetermined significance on cervical Papanicolaou smear 926577744 R87.610 Candidal vulvovaginitis 45656988 B37.3 Candidiasis of skin 4988 3006 B37.2 [id number] MD SUSAN Paz MD [address] [place] [address],[facility] [place] [address] 10/29/2018 14:39:57 10/29/2018 15:48:46 Candidal vulvovaginitis 28901511 B37.3 [id number] MD SUSAN Paz MD [address] [place] [address],[facility] [place] [place] [address] 01/21/2019 14:15:57 01/21/2019 15:26:44 [id number] MD SUSAN Paz MD [address] [place] [address],[facility] [place] [address] 01/31/2019 14:17:08 02/03/2019 13:42:53 Venereal disease screening 154837885 Z11.3 Candidal vulvovaginitis 21404014 B37.3 [id number] MD SUSAN Paz MD [address] [place] [address],[facility] [place] [address] 04/04/2019 14:15:11 04/04/2019 15:03:39 Atypical squamous cells of undetermined significance on cervical Papanicolaou smear 826967312 R87.610 [id number] MD SUSAN Paz MD [address] [place] [address] [place] [address] 11/20/2019 09:12:12 11/21/2019 15:08:32 Cytologic finding 286306988 R87.612 Atypical s quamous cells of undetermined significance on cervical Papanicolaou smear 770130842 R87.610 [id number] MD SUSAN Paz MD [address] [place] [address] [place] [address] 08/06/2020 12:50:24 08/06/2020 13:50:18 Specialized medical examination 37596620 Z01.419 Venereal d isease screening 470717269 Z11.3 [id number] MD SUSAN Paz MD [address] [place], [place] [address] [address] 05/20/2021 10:30:23 05/20/2021 12:06:14 Dysmenorrhea 242474961 N94.6 N94.4 [id number] MD SUSAN Paz MD [address] [place] [address],[place] 5 08/08/2021 08:59:44 08/08/2021 10:52:31 Specialized medical examination 42647099 Z01.419 Venereal d isease screening 093117062 Z11.3 [id number] MD SUSAN Paz MD [address] [place] [address],[place] 5 09/12/2021 13:42:20 09/12/2021 14:54:26 Dysmenorrhea 838332732 N94.6 N94.4 [id number] MD SUSAN Paz MD [address] [place] [address],[place] [address] 10/07/2021 10:15:14 10/07/2021 13:15:08 Dysmenorrhea 465310662 N94.4 [id number] MD SUSAN Paz MD [address] [place] [address],[place] [address] 10/18/2021 08:56:55 10/18/2021 10:49:55 Nonpuerperal abscess of right breast 6517805197 0993020 N61.1 [id number] MD SUSAN Paz MD [address] [place] [address],[place] [address] 01/03/2022 09:50:14 01/03/2022 10:27:14 Dysmenorrhea 889301151 N94.4 [id number] MD SUSAN Paz MD [address] [place] [address],[place] [address] 03/28/2022 09:48:45 03/28/2022 10:50:52 Dysmenorrhea 927204750 N94.4 [id number] MD SUSAN Paz MD [address] [facility] [place] [address] 06/16/2022 09:54:15 06/16/2022 10:57:32 Dysmenorrhea 068013162 N94.4 [id number] MD SUSAN Paz MD [address] [facility] [place] [address] 12/11/2022 10:19:43 12/11/2022 14:28:00 Specialized medical examination 43216571 Z01.419 Venereal d isease screening 138087272 Z11.3 Health Concerns Section Related Observation LastModified by Organization Detai ls LastModified Time None Recorded Concern Status LastModified by Organization Details LastModified Time None Recorded Advance Directives Directive None Recorded Payers Insurance Date Sequence Insurance Name Policy Number Policy Mejía Covered Member ID Mejía Member ID Guarantor Name 01/21/[address] [id number] 1 Sarah Latouraliyah [id number] [facility] 10/13/2019 1 [employer] (POS) Sarah Latourelle [id number] Ankur Latourelle 11/21/2019 1 UMR [id number] Sarah Latourelle [id number] Ankur Latourelle 11/27/2019 1 *SELF PAY* Mo fly Latourelle 05/30/2024 1 BLUE BENEFIT [facility] [facility] [id number] Sarah Latourelle [id number] [facility] Notes Date Note Type Note Provider Name and Address Organization Details Recorded Time 10/18/2021 text/html She is here for a 6 day history of a tender lump under the right areolae. She had the nipples pierced 4 months ago. Susan Cisneros MD [address] [facility],[address], [place], [address], [place] - [facility], [...] to emotional side effects. She had a jail partner for years, they broke up, now she has a new partner for the past month or two. Susan Cisneros MD [address] [facility],[address], [place], [address], [place] - [facility], 12/11/2022 13:08:28 OBGyn Episode No OBEpisode recorded.
--- OUTSIDE RECORDS SUMMARY | 2025-09-21 11:24 | XMS_ITS | Encounter Summary ---
Author Organization [facility] Address [address] [place] [address] Phone Care Team Providers Care Curriculum And Instruction Director Name Role Phone Griselda Myers MD Primary Care Provider [phone] Encounter Details Date Type Department Care Team (Late st Contact Info) Description 04/07/2018 Conversion Encounter [facility] [address] [place] [address] Griselda Myers MD [address] [place] [address] Social History Tobacco Use Types Packs/Day Years [...] on filedocumented in this encounter Care Teams Curriculum And Instruction Director Relationship Specialty Start Date End Date Griselda Myers MD [address] [place] [address] PCP - General 03/27/18 09/29/24 documented as of this encounter
== END 2025-09-21 11:14 | disposition home or self-care (01) ==
LOC: HO.HOP 09:50
PROVIDERS: PCP Internal Medicine; Visit Provider Clinical Nurse Specialist Psychiatric/Mental Health
DX: F40.298 Other specified phobia (principal); I47.9 Paroxysmal tachycardia, unspecified; R25.1 Tremor, unspecified
CPT/HCPCS: 90792

== ENCOUNTER → 2025-09-21 09:50 | Outpatient (REF) | payer OTHER, SELFPAY ==
--- NOTE | 2025-09-21 11:27 | ECG_ITS ---
Test Reason : PAROXYSMAL TACHYCARDIA Blood Pressure : */* mmHG Vent. Rate : 66 BPM Atrial Rate : 66 BPM P-R Int : 122 ms QRS Dur : 88 ms QT Int : 376 ms P-R-T Axes : 54 65 38 degrees QTcB Int : 394 ms Normal sinus rhythm Normal ECG No previous ECGs available Referred By: Milla Ponce Electronically Signed By: Andrea Niño
== END ==
LOC: HO.CARD 09:50
PROVIDERS: PCP Internal Medicine; Visit Provider Clinical Nurse Specialist Psychiatric/Mental Health
DX: I47.9 Paroxysmal tachycardia, unspecified (principal); F40.298 Other specified phobia; R25.1 Tremor, unspecified; Z79.899 Other long term (current) drug therapy
CPT/HCPCS: 90792; 93005

== ENCOUNTER → 2025-09-21 11:27 | Outpatient (BNV) | payer OTHER, SELFPAY | PROVIDERS: PCP Internal Medicine; Visit Provider Internal Medicine Cardiovascular Disease | DX: I47.9 Paroxysmal tachycardia, unspecified (principal) | CPT/HCPCS: 93010 ==

== ENCOUNTER 2025-10-19 09:56 | Outpatient (AMB) | payer OTHER, SELFPAY ==
--- NOTE | 2025-10-19 10:13 | A.OFFPSYCH_ITS ---
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 She reports the last time this hapened was about 3 weeks ago she woke in the night with stomach discomfort and she became very anxious, sweating, hot, and her whole body began to shake. She reports her anxiety attacks are very physical and dont really have emotional or worry aspect to it. She reports she feels her heart beating fast and hard out of the blue, her whole body shakes violently. When asked what it looked like that her body shook violently she said its not just a small hand tremor its her whole body shaking and if you touched her you could feel her shaking. She reports she thinks she has a vasovagal response where she feels hot, starts to sweat, heart races, body tremors, and she has to sit down. she denies ever losing consciousness or having syncope JOSE Pascual is a 24 year old single woman who lives with her parents referred by her PCP to evaluate medications and treatments for anxiety/panic. Pt comes in today reporting her goal is to taper off the zoloft. She has already tapered herself down to 50mg daily. She tapered the zoloft from 125mg by 12.5mg every month or tow. She is tolerating the taper well, She reports she does not like the side effects of SSRIs and does not want to be on one. She reports emotional blunting and low sex drive. She reports even if she wants to cry about something sad like watching a movie she can not cry. She reports no depression and very little daily anxiety; she reports she has had anxiety and panic since she was approximately 8 years old. she was put on zoloft at that time; she has been on it since then. the highest dose was 125mg daily. Past Psychiatric History: outpt treatment since age 8 with meds and therapy for panic and separation anxiety Subjective Subjective Medication Compliance: Yes Side effects from medications: No Review of Systems Medical Review of Systems: unchanged Mental Status Exam Mental Status Exam Patient Appearance: Well Grooomed and Appropriate Patient Orientation: Person, Place, Time and Situation Level of Consciousness: Awake, Appropriate and Alert Patient Behavior: Appropriate, Talkative, Cooperative, Anxious and Good Eye Contact Mood Description: Appropriate and Cheerful Affect Description: Appropriate and Cheerful Patient Cognition Impaired: No Ability to Follow Directions: Good Speech Pattern: Clear, Appropriate and Coherent Memory Description: Intact Hallucinations: None Delusions: Not Present Thought Process: Intact and Goal Oriented Thought Content: positive for Intact and positive for Goal Oriented Judgement: Good Assessment and Plan Assessment & Plan (1) Tachycardia, paroxysmal: Status: Acute Code(s): I47.9 - Paroxysmal tachycardia, unspecified (2) Tremors of nervous system: Status: Acute Code(s): R25.1 - Tremor, unspecified (3) 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 Self Management counseling: Exercise, Maintenance-social rhythm, Mod caffeine/ETOH intake, Nutrition education and improvement, Sleep hygiene, General coping skills and Problem solving Medication management counseling: Effectiveness, Side effects, Dosing range, Duration, Drug interaction and Adherence Diagnosis and Prognosis Counseling: Accuracy of diagnosis, Prognosis over time, Impact of diagnosis on life functions, Impact of family relationship, Problematic behaviors secondary to diagnosis and Adequacy of current interventions Details: I spent [] minutes reviewing the record, seeing the patient and documenting in the medical record. Counseling provided to the patient/caregiver as outlined below. Addressed patient/caregiver concerns regarding current medication regime including effective adherence. Addressed patient/caregiver concerns regarding diagnosis an d prognosis including accuracy of diagnosis, prognosis over time, impact of diagnosis. Addressed patient/caregiver concerns regarding impact of recent stressors. [facility] Medical History Screening for hypothyroidism Urinary frequency Plantar warts Anxiety Surgical History History of removal of skin mole Family History Mother Thyroid cancer Father Diabetes Social History Housing: Apartment Alcohol intake: never Patient Tobacco Use Status: Never used Tobacco e-Cigarette/Vaping Use: Former Use Second Hand Smoke Exposure: No service: No Current occupational status: employed Current occupational exposures/hazards: No Cognitive needs: No Hearing needs: No Vision needs: Yes (glasses) Social History: lives with parents; has older brother (4yrs older) 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 Has supportive BF and friends Substance History: Pt reports no tobacco use, No caffeine use, Occasional THC u se 2 x a month, ETOH 1 drink 1 x a month or less, no other drug use. Trauma History: none Coding Level of Care Code Est Pt Level 4 (23403) Diagnoses Tachycardia, paroxysmal I47.9 Tremors of nervous system R25.1 Specific phobia F40.298
--- OUTSIDE RECORDS SUMMARY | 2025-10-19 12:02 | XMS_ITS | Encounter Summary ---
Author Organization [facility] Address [address] [place] [address] Phone Care Team Providers Care Threading Machine Tender Name Role Phone Griselda Myers MD Primary Care Provider [phone] Encounter Details Date Type Department Care Team (Late st Contact Info) Description 12/10/2009 Documentation [facility] Family Medicine [address] [place], [place] [id number] Family Medicine, Physician [address] [place] [address] Social History Tobacco Use Types Packs/Day Years [...] on filedocumented in this encounter Care Teams Threading Machine Tender Relationship Specialty Start Date End Date [facility] [address] P[facility] - General 03/27/18 09/29/24 documented as of this encounter
--- OUTSIDE RECORDS SUMMARY | 2025-10-19 12:02 | XMS_ITS | Encounter Summary ---
Author Organization [facility] Address [address] [place] [address] Phone Care Team Providers Care Solder Making Supervisor Name Role Phone Griselda Myers MD Primary Care Provider [phone] Encounter Details Date Type Department Care Team (Late st Contact Info) Description 04/07/2018 Conversion Encounter [facility] [address] [place] [address] Griselda Myers MD [address] [place] [address] Social History Tobacco Use Types Packs/Day Years [...] on filedocumented in this encounter Care Teams Solder Making Supervisor Relationship Specialty Start Date End Date Griselda Myers MD [address] [place] [address] PCP - General 03/27/18 09/29/24 documented as of this encounter
--- OUTSIDE RECORDS SUMMARY | 2025-10-19 12:02 | XMS_ITS | Clinical Summary ---
Author Organization [facility] Address [address] [place] [address] Phone Care Team Providers Care Heel Seat Pounder Name Role Phone Unavailable Primary Care Provider [...]
--- OUTSIDE RECORDS SUMMARY | 2025-10-19 12:02 | XMS_ITS | Data Portability ---
Author Organization [place] [facility],, SUSAN CISNEROS MD Address [address] [facility] [address] [place] [address] Care Team Providers Care Service Architect Name Role Phone [facility] Care Provider Assessment No assessment recorded. Plan of Treatment Reminders Order Date Submit Date Provider Last Modified By Organization Details Last Modified Time Details Appointments None recorded. Lab pap test, thinprep, cervical 2022 023 [email or web address] [facility] (Centralized Electronic Ordering - All Locations), Patient Can Go To The Location Of Their Choice, [facility] 3 07:35:56 chlamydia sp, culture, unspecifie d specimen 2022 023 [email or web address] [facility] (Centralized Electronic Ordering - All Locations), Patient Can Go To The Location Of Their Choice, [facility] 3 07:35:57 NG DNA, PCR, genital 2022 023 [email or web address] [facility] (Centralized Electronic Ordering - All Locations), Patient Can Go To The Location Of Their Choice, [facility] 3 07:35:57 Referral None recorded. Procedures None recorded. Surgeries None recorded. Imaging None recorded. Medication Orders Aviane 0.1 mg-20 mcg tablet 2022 023 MARGARET [id number], [address] [place], [address], 3 13:06:06 Depo-Prove ra 150 mg/mL intramuscu lar suspension 2021 022 [email or web address] 1 [id number], [address] [place], [address], 10:35:23 Depo-Prove ra 150 mg/mL intramuscu lar suspension 2021 022 [email or web address] 1 [id number], [address] [place], [address], 10:28:17 Depo-Prove ra 150 mg/mL intramuscu lar suspension 2021 022 [email or web address] 1 [id number], [address] [place], [address], 10:21:11 azithromyc in 250 mg tablet 2020 021 [email or web address] [id number], [address] [place], [address], 09:54:07 Patient TargetsNo targets recorded. Patient Instructions Encounter Date Encounter Id Patient Instructions Last Modified By Organization Details Last Modified Time 10/18/2021 [id number] She is here for a 6 day [...] minutes edd Not available 10/18/2021 09:20:45 01/03/2022 [id number] shot for control: care instructions Not available 01/03/2022 10:21:11 03/28/2022 [id number] shot for control: care instructions [email or web address] Not available 03/28/2022 10:28:15 06/16/2022 [id number] shot for control: care instructions Not available 06/16/2022 10:35:23 12/11/2022 [id number] learning about healthy weight [email or web address] Not available [...] to emotional side effects. She had a group home partner for years, they broke up, now [...] DO Not Attach Compendium, Do Not Delete/merge, [id number] 10/07/2021 10:52:58 12/11/19 23 12/12/2022 THIN PREP [...] Go To The Location Of Their Choice, [id number] 12/12/2022 13:37:09 12/11/19 23 12/12/2022 THIN PREP [...] neede d. Conta ct phone numbe r [phone]. Thera peuti c failu re or succe ss canno t be deter mined with the Aptim a Combo 2 assay since nucle ic acid may persi st follo wing appro priat e antim icrob ial thera py. [facility] ([facility]) recom mends confi rmato ry retes ting using cultu re or a diffe rent nucle ic acid ampli ficat ion test when posit ramana resul ts occur , if indic ated. 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 Problems Name Problem SNOMED Code Status Onset Date Resolution Date Notes Provider Name and Address Organization Details Recorded Time Genital Molluscum contagiosum 888532975 Active 2017 Susan Cisneros MD [address], [place], [address], [place] [facility], 8 14:52:40 Candidal vulvovaginitis 73182051 Active 2017 Susan Cisneros MD [address], [place], [address], [place] [facility], 8 15:19:47 Candidiasis of skin 21589139 Active 2017 Susan Cisneros MD [address], [place], [address], [place] [facility], 8 15:19:57 Problem Notes None recorded. Procedures Surgical History Date Name Laterality Status Provider Name and Address Organization Details Recorded Time 0 Colposcopy completed Susan Cisneros MD [address], [place], [address], [place] [facility], 11/20/2019 10:05:33 8 Destroy condyloma, extensive completed Susan Cisneros MD [address], [place], [address], [place] [facility], 05/28/2018 12:13:41 1 Other completed Shira Ronak [place] [facility], 05/04/2016 14:24:28 Imaging Results None recorded. [...] Updated DateTime 12/11/2022 162.56 cm 20.1 kg/m2 38488.03 g 91 /min 115/67 mm[Hg] Shira Simons [place] [facility], 12/11/2022 10:23:11 Date Recorded Body height Body mass index (BMI) Body weight Body temperature Heart rate Systolic And Diastolic Provider Name and Address Organization Details Last Updated DateTime 2 162.56 cm 19.2 kg/m2 28296.3 5 g 97.4 [degF] 74 /min 109/69 mm[Hg] Shira Stallings in [facility], 2 09:54:35 Date Recorded Body height Body mass index (BMI) Body weight Heart rate Body temperature Systolic And Diastolic Provider Name and Address Organization Details Last Updated DateTime 2 162.56 cm 19.2 kg/m2 81092.3 5 g 87 /min 97.2 [degF] 107/66 mm[Hg] Sarah Stallings in [facility], 2 09:51:07 Date Recorded Body height Body mass index (BMI) Body weight Heart rate Systolic And Diastolic Provider Name and Address Organization Details Last Updated DateTime 06/16/2022 162.56 cm 19.7 kg/m2 02222.12 g 67 /min 110/71 mm[Hg] Sarah Stallings in [facility], 06/16/2022 09:58:15 Date Recorded Body height Body mass index (BMI) [Percentile] Per age and sex Body mass index (BMI) Body weight Body temperature Heart rate Systolic And Diastolic Provider Name and Address Organization Details Last Updated DateTime 1 162.56 cm 18 % 19.3 kg/m2 49508.5 g 97.4 [degF] 78 /min 105/63 mm[Hg] Shira Stallings in [facility], 1 09:00:11 Social History Question Answer Notes LastModified by Organizat ion Details LastModified Time Tobacco Smoking Status Never Smoker [place] in [facility], 05/04/2016 14:22:17 How Many Years Have You [...] Or The Highest Degree You Have Received? [id number] Information not available 08/08/2021 Who Is Your [...] anxious, or unable to sleep at night)? [id number] Information not available 08/08/2021 Family History Relationship [...] quadrivalent, preservative 9 completed [place] Mortensen in [facility], 11/20/2019 09:24:02 COVID-19, mRNA, LNP-S, PF, 30 mcg/0.3 mL dose 1 completed [place] Bowers in [facility], 03/28/2022 09:51:58 COVID-19, mRNA, LNP-S, PF, 30 mcg/0.3 mL dose 1 completed [place] Bowers in [facility], 09/12/2021 13:44:43 influenza, unspecified formulation 2 completed [place] in [facility], 12/11/2022 10:24:38 Past Encounters Encounter ID Performer Location Encounter Start Date Encounter Closed Date Diagnosis/Indication Diagnosis SNOMED-CT Code Diagnosis ICD10 Code Diagnosis IMO Codes Diagnosis Note [id number] MD SUSAN Paz MD [address] [place] [address] [place] [address] 05/04/2016 14:07:39 05/04/2016 15:06:52 Specialized medical examination 43370721 Z01.419 Venereal d isease screening 507574092 Z11.3 [id number] MD SUSAN Paz MD [address] [place] [address], [address] [place] [address] 07/03/2017 13:49:36 07/03/2017 15:03:04 Specialized medical examination 83382031 Z01.419 Venereal d isease screening 801353765 Z11.3 [id number] MD SUSAN Paz MD [address] [place] [address],[facility] [place] [address] 08/17/2017 13:19:02 08/17/2017 15:52:15 Candidal vulvovaginitis 36235591 B37.3 [id number] MD SUSAN Paz MD [address] [place] [address],[facility] [place] [address] 09/03/2017 14:51:39 09/03/2017 15:56:42 Candidal vulvovaginitis 19223510 B37.3 Ulceration of vulva 6864 0004 N76.6 Herpetic u lceration of vulva 66737055 A60.04 A60.09 [id number] MD SUSAN Paz MD [address] [place] [address],[facility] [address] 09/13/2017 10:43:06 09/13/2017 12:58:54 Venereal disease screening 716188925 Z11.3 Candidal vulvovaginitis 46344534 B37.3 [id number] MD SUSAN Paz MD [address] [place] [address],[address] [address] 10/18/2017 13:16:22 10/18/2017 16:05:21 Candidal vulvovaginitis 10574785 B37.3 Venereal d isease screening 177719471 Z11.3 Vaginitis 60604896 N76.0 [id number] MD SUSAN Paz MD [address] [place] [address], [place] [address] 12/03/2017 11:02:43 12/03/2017 12:12:38 Vulvitis 85751024 N76.2 B96.89 Candidal vulvovaginitis 91854034 B37.3 [id number] MD SUSAN Pza MD [address] [place] [address],[facility] [place] [address] 12/24/2017 09:31:35 12/24/2017 11:57:11 Candidal vulvovaginitis 02308018 B37.3 Molluscum contagiosum infection 50489201 B08.1 [id number] MD SUSAN Paz MD [address] [place] [address],[facility] [place] [address] 02/26/2018 14:13:23 02/26/2018 16:17:18 Genital Molluscum contagiosum 804651491 B08.1 [id number] MD SUSAN Paz MD [address] [place] [address],[facility] [place] [address] 04/02/2018 14:55:29 04/02/2018 15:55:16 Genital Molluscum contagiosum 529718500 B08.1 Vulvitis 18167819 N76.2 B96.89 [id number] MD SUSAN Paz MD [address] [place] [address],[facility] [place] [address] 05/28/2018 10:37:24 05/28/2018 14:31:31 Genital Molluscum contagiosum 023023098 B08.1 [id number] MD SUSAN Paz MD [address] [place] [address],[address] [address] 07/19/2018 13:38:18 07/19/2018 14:21:31 Specialized medical examination 77128567 Z01.419 Venereal d isease screening 767291091 Z11.3 Genital Mo lluscum contagiosum 829019432 B08.1 [id number] MD SUSAN Paz MD [address] [place] [address],[facility] [place] [address] 10/15/2018 14:57:20 10/15/2018 15:45:57 Atypical squamous cells of undetermined significance on cervical Papanicolaou smear 838339015 R87.610 Candidal vulvovaginitis 16782327 B37.3 Candidiasis of skin 4988 3006 B37.2 [id number] MD SUSAN Paz MD [address] [place] [address],[facility] [place] [address] 10/29/2018 14:39:57 10/29/2018 15:48:46 Candidal vulvovaginitis 70668380 B37.3 [id number] MD SUSAN Paz MD [address] [place] [address],[facility] [place] [address] 01/21/2019 14:15:57 01/21/2019 15:26:44 [id number] MD SUSAN Paz MD [address] [place] [address],[facility] [place] [address] 01/31/2019 14:17:08 02/03/2019 13:42:53 Venereal disease screening 607202706 Z11.3 Candidal vulvovaginitis 69778577 B37.3 [id number] MD SUSAN Paz MD [address] [place] [address],[facility] [address] 04/04/2019 14:15:11 04/04/2019 15:03:39 Atypical squamous cells of undetermined significance on cervical Papanicolaou smear 367461990 R87.610 [id number] MD SUSAN Paz MD [address] [place] [address] [place] [address] 11/20/2019 09:12:12 11/21/2019 15:08:32 Cytologic finding 725614673 R87.612 Atypical s quamous cells of undetermined significance on cervical Papanicolaou smear 346735814 R87.610 [id number] MD SUSAN Paz MD [address] [place] [address] [place] [address] 08/06/2020 12:50:24 08/06/2020 13:50:18 Specialized medical examination 00819955 Z01.419 Venereal d isease screening 693374599 Z11.3 [id number] MD SUSAN Paz MD [address] [place], [place] [address] [address] 05/20/2021 10:30:23 05/20/2021 12:06:14 Dysmenorrhea 884038221 N94.6 N94.4 [id number] MD SUSAN Paz MD [address] [place] [address],[place] 5 08/08/2021 08:59:44 08/08/2021 10:52:31 Specialized medical examination 64876051 Z01.419 Venereal d isease screening 952959244 Z11.3 [id number] MD SUSAN Paz MD [address] [place] [address],[place] 5 09/12/2021 13:42:20 09/12/2021 14:54:26 Dysmenorrhea 439661367 N94.6 N94.4 [id number] MD SUSAN Paz MD [address] [place] [address],[place] [address] 10/07/2021 10:15:14 10/07/2021 13:15:08 Dysmenorrhea 529976715 N94.4 [id number] MD SUSAN Paz MD [address] [place] [address],[place] [address] 10/18/2021 08:56:55 10/18/2021 10:49:55 Nonpuerperal abscess of right breast 9924512081 [id number] N61.1 [id number] MD SUSAN Paz MD [address] [place] [address],[place] [address] 01/03/2022 09:50:14 01/03/2022 10:27:14 Dysmenorrhea 412943029 N94.4 [id number] MD SUSAN Paz MD [address] [place] [address],[place] [address] 03/28/2022 09:48:45 03/28/2022 10:50:52 Dysmenorrhea 376296754 N94.4 [id number] MD SUSAN Paz MD [address] [facility] [place] [address] 06/16/2022 09:54:15 06/16/2022 10:57:32 Dysmenorrhea 228422348 N94.4 [id number] MD SUSAN Paz MD [address] [facility] [place] [address] 12/11/2022 10:19:43 12/11/2022 14:28:00 Specialized medical examination 03704919 Z01.419 Venereal d isease screening 771230013 Z11.3 Health Concerns Section Related Observation LastModified by Organization Detai ls LastModified Time None Recorded Concern Status LastModified by Organization Details LastModified Time None Recorded Advance Directives Directive None Recorded Payers Insurance Date Sequence Insurance Name Policy Number Policy Mejía Covered Member ID Mejía Member ID Guarantor Name 01/21/[address] [id number] 1 Sarah Latouraliyah [id number] Ankur Lathenry [facility] 10/13/2019 1 [employer] (POS) Sarah Latourelle [id number] Ankur Latourelle 11/21/2019 1 UMR [id number] Sarah Latourelle [id number] Ankur Latourelle 11/27/2019 1 *SELF PAY* Mo fly Latourelle 05/30/2024 1 [employer]UE [employer] [facility] [facility] [id number] Sarah Latourelle [id number] Ankur Lathenry [facility] Notes Date Note Type Note Provider Name and Address Organization Details Recorded Time 10/18/2021 text/html She is here for a 6 day history of a tender lump under the right areolae. She had the nipples pierced 4 months ago. Susan Cisneros MD [address] [facility],[address], [place], [address], [place] - [facility], [...] to emotional side effects. She had a group home partner for years, they broke up, now she has a new partner for the past month or two. Susan Cisneros MD [address] [facility],[address], [place], [address], [place] [facility], 12/11/2022 13:08:28 OBGyn Episode No OBEpisode recorded.
== END 2025-10-19 10:38 | disposition home or self-care (01) ==
LOC: HO.HOP 09:56
PROVIDERS: PCP Internal Medicine; Visit Provider Clinical Nurse Specialist Psychiatric/Mental Health
DX: F40.298 Other specified phobia (principal); I47.9 Paroxysmal tachycardia, unspecified; R25.1 Tremor, unspecified
CPT/HCPCS: 99214